=== PATIENT | female | born 1980 | race Caucasian/White ===

== ENCOUNTER 2020-11-23 07:59 | Emergency (ER) | payer OTHER ==
--- OUTSIDE RECORDS SUMMARY | 2020-11-23 08:02 | XMS REPORT | Continuity of Care Document ---
:1980 Author Organization [facility] t Address [address] [place] [address] Care Team Providers Name Role Phone Nina Rogers MD Attending Clinician Problems This patient has no known problems. Allergies, Adverse Reactions, Alerts This patient has no known allergies or adverse reactions. Medications This patient has no known medications. Procedures This patient has no known procedures. Encounters Start End Encounter Admission Attending Care Care Encounter Source Date/Time Date/Time Type Type Clinicians Facility Department ID 2020-07-14 2020-07-14 [facility] [id number] 10:15:25 23:59:00 Encounter [facility] [id number] Surgical [id number] Specialti [id number] es [address] 2020-07-14 2020-07-14 Office [facility] [id number] 10:12:40 10:32:26 Visit [facility] [id number] Surgical [id number] Specialti [id number] es [address] [place] Results This patient has no known results.
[2020-11-23] MEDS ORDERED: METHYLPREDNISOLONE 125 MG INJ ONE (09:38)
[2020-11-23] MEDS ORDERED: IPRATROPIUM BROM 0.5MG/2.5ML ONE ×2 (09:39)
[2020-11-23] MEDS ORDERED: ALBUTEROL 2.5 MG/3 ML NEB SOL ONE (09:39)
--- NOTE | 2020-11-23 09:51 | RAD REPORT ---
EXAM DESCRIPTION: Dany Single View11/23/2020 9:30 am CLINICAL HISTORY: Cough COMPARISON: none FINDINGS: The lungs appear clear of acute infiltrate. The heart is normal size IMPRESSION: No acute abnormalities displayed
[2020-11-23 10:06] LABS: Absolute Lymphocytes (CBC) 1.1 K/uL (0.7-4.9); Hematocrit 38.3 % (36.0-45.0); Lymphocytes % 17.3 % (15.3-44.8); MPV 10.5 fL (7.6-11.3)
[2020-11-23 10:22] LABS: ALT/SGPT 19 U/L (12-78); AST/SGOT 9 U/L (15-37); Albumin 3.5 g/dL (3.4-5.0); Alkaline Phosphatase 67 U/L (45-117); BUN Blood Urea Nitrogen 11 mg/dL (7-18); Bicarbonate 25 mmol/L (21-32); Bilirubin Direct 0.1 mg/dL (0-0.2); Bilirubin Total 0.3 mg/dL (0.2-1.0); Glucose Level 100 mg/dL (74-106); Lipase 121 U/L (73-393); Magnesium 1.9 mg/dL (1.8-2.4); Potassium 4.3 mmol/L (3.5-5.1); Sodium Level 144 mmol/L (136-145); Troponin (Emerg Dept Use Only) < 0.02 ng/mL (0.0-0.045)
--- NOTE | 2020-11-23 10:47 | ER ---
Nurse's Notes [facility] Name: Roxy Wolff Age: 40 yrs Sex: Female : 1980 Arrival Date: 11/23/2020 Time: 08:07 Bed 14 Private MD: Diagnosis: Bronchitis, not specified as acute or chronic Presentation: 11/23 08:09 Chief complaint: Patient states: sore throat, cough x 2 days. Coronavirus screen: sv Client denies travel out of the [place] in the last 14 days. Coronavirus screen: Client presents with at least one sign or symptom that may indicate coronavirus-19. Standard/surgical mask placed on the client. Provider contacted for isolation considerations. Ebola Screen: No symptoms or risks identified at this time. Risk Assessment: Do you want to hurt yourself or someone else? Patient reports no desire to harm self or others. Onset of symptoms was November 21, 2020. 08:09 Method Of Arrival: Ambulatory sv 08:09 Acuity: JOSR 3 sv 08:12 Initial Sepsis Screen: Does the patient meet any 2 criteria? No. Patient's initial sv sepsis screen is negative. Does the patient have a suspected source of infection? No. Patient's initial sepsis screen is negative. Historical: - Allergies: 08:12 Doxycycline; sv - PMHx: 08:12 Asthma; Arthritis; Gout; Tumors throughout my body; Anxiety; Migraines; sv - PSHx: 08:12 left neck reconstructive; kidney; sv - Immunization history:: Adult Immunizations. - Social history:: Smoking status: . Screenin:07 Abuse screen: Denies threats or abuse. Nutritional screening: No deficits noted. tw2 Tuberculosis screening: No symptoms or risk factors identified. Fall Risk None identified. Assessment: 08:47 Reassessment: provider at bedside at this time. tw2 08:54 General: Appears in no apparent distress. comfortable, Behavior is cooperative, vg1 anxious. Pain: Denies pain. Neuro: Level of Consciousness is awake, alert, obeys commands, Oriented to person, place, time, situation. Cardiovascular: Capillary refill < 3 seconds. Respiratory: Airway is patent Respiratory effort is even, unlabored, Breath sounds are clear bilaterally. GI: No signs and/or symptoms were reported involving the gastrointestinal system. : No signs and/or symptoms were reported regarding the genitourinary system. EENT: No signs and/or symptoms were reported regarding the EENT system. Derm: Skin is clammy. Musculoskeletal: Circulation, motion, and sensation intact. 11:18 Reassessment: Patient appears in no apparent distress at this time. Patient and/or sv family updated on plan of care and expected duration. Pain level reassessed. Patient is alert, oriented x 3, equal unlabored respirations, skin warm/dry/pink. Vital Signs: 08:12 BP 102 / 74; Pulse 86; Resp 20; Temp 98.5; Pulse Ox 98% ; Height 5 ft. 5 in. (165.10 sv cm); 08:55 BP 135 / 82; Pulse 80; Resp 20; Pulse Ox 100% on R/A; vg1 ED Course: 08:07 Patient arrived in ED. mr 08:09 Arm band placed on. sv 08:11 Triage completed. sv 08:43 Bed in low position. Call light in reach. Pulse ox on. NIBP on. tw2 08:45 Abimbola Le, RN is Primary Nurse. vg1 08:45 Timbo Parson MD is Attending Physician. ps1 09:30 XRAY CXR (1 view) In Process Unspecified. EDMS 09:36 Initial lab(s) drawn, by me, sent to lab. EKG done, by ED staff, reviewed by Abimbola Le RN. 09:36 Inserted saline lock: 20 gauge in right antecubital area, using aseptic technique. vg1 Blood collected. 11:18 No provider procedures requiring assistance completed. IV discontinued, intact, sv bleeding controlled, No redness/swelling at site. Pressure dressing applied. Administered Medications: 09:42 Drug: Albuterol 2.5 mg Route: Inhalation; vg1 :42 Drug: SOLU-Medrol 125 mg Route: IVP; Site: right antecubital; vg1 11:25 Follow up: Response: No adverse reaction vg1 09:42 Drug: AtroVENT Aerosol 0.5 mg Route: Inhalation; vg1 11:25 Drug: Albuterol 2.5 mg Route: Inhalation; vg1 11:25 Follow up: Response: No adverse reaction vg1 11:25 Follow up: Response: No adverse reaction vg1 11:25 Drug: AtroVENT Aerosol 0.5 mg Route: Inhalation; vg1 11:25 Follow up: Response: No adverse reaction vg1 Outcome: 10:46 Discharge ordered by . ps1 11:18 Discharged to home ambulatory. sv 11:18 Condition: stable 11:18 Condition: improved 11:18 Discharge instructions given to patient, Instructed on discharge instructions, follow up and referral plans. medication usage, Demonstrated understanding of instructions, follow-up care, medications, Prescriptions given X 3. 11:18 Patient left the ED. sv Signatures: Dispatcher [employer] EDDara Keys, RN RN sv Ruth Vickers mr Bailey Taylor, RN RN tw2 Timbo Parson MD MD ps1 Rey, Abimbola RN RN vg1 Corrections: (The following items were deleted from the chart) 08:15 08:12 Pulse 86bpm; Resp 20bpm; Pulse Ox 98%; Temp 98.5F; Height 5 ft. 5 in.; sv sv
--- NOTE | 2020-11-23 10:47 | EDPHYS ---
Physician Documentation [facility] Name: Roxy Wolff Age: 40 yrs Sex: Female : 1980 Arrival Date: 11/23/2020 Time: 08:07 Bed 14 Private MD: ED Physician Timbo Parson HPI: 11/23 10:47 This 40 yrs old Female presents to ER via Ambulatory with complaints of ps1 Asthma Exacerbation. 10:47 patient states that the symptoms started yesterday. Associated with wheezing. Has a ps1 history of asthma usually controlled with albuterol nebulizer. States that she has a thick cough. No production. No fever. Has anxiety about hospitals as they always find something wrong. No acute distress. Unlabored breathing. No leg swelling or DVT risk.. Historical: - Allergies: 08:12 Doxycycline; sv - PMHx: 08:12 Asthma; Arthritis; Gout; Tumors throughout my body; Anxiety; Migraines; sv - PSHx: 08:12 left neck reconstructive; kidney; sv - Immunization history:: Adult Immunizations. - Social history:: Smoking status: . ROS: 10:47 Constitutional: Negative for fever, chills, and weight loss. ps1 10:47 Eyes: Negative for injury, pain, redness, and discharge. 10:47 Cardiovascular: Negative for chest pain, orthopnea, palpitations, paroxysmal nocturnal dyspnea, acute changes. 10:47 Respiratory: Positive for cough, wheezing, expiratory, Negative for hemoptysis. 10:47 Abdomen/GI: Negative for abdominal pain, nausea, vomiting, and diarrhea, constipation. 10:47 Neuro: Negative for dizziness. 10:47 Psych: Positive for anxiety, Negative for homicidal ideation, suicidal ideation. Exam: 10:47 Constitutional: This is a well developed, well nourished patient who is awake, alert, ps1 and in no acute distress. 10:47 Head/Face: Normocephalic, atraumatic. 10:47 Eyes: Pupils: equal, round, and reactive to light and accomodation, Extraocular movements: intact throughout. 10:47 Chest/axilla: Inspection: normal. 10:47 Cardiovascular: Rate: normal, Rhythm: regular. 10:47 Abdomen/GI: Inspection: abdomen appears normal, Palpation: abdomen is soft and non-tender. 10:47 Skin: Appearance: normal except for affected area. 10:47 Psych: Behavior/mood is anxious, Affect is calm, Oriented to person, place, time. Vital Signs: 08:12 BP 102 / 74; Pulse 86; Resp 20; Temp 98.5; Pulse Ox 98% ; Height 5 ft. 5 in. (165.10 sv cm); 08:55 BP 135 / 82; Pulse 80; Resp 20; Pulse Ox 100% on R/A; vg1 MDM: 09:40 Patient medically screened. ps1 10:52 Differential diagnosis: acute asthma, reactive airway, URI. Data reviewed: vital signs, ps1 nurses notes, lab test result(s), radiologic studies. Counseling: I had a detailed discussion with the patient and/or guardian regarding: the historical points, exam findings, and any diagnostic results supporting the discharge/admit diagnosis, lab results, radiology results, the need for outpatient follow up, to return to the emergency department if symptoms worsen or persist or if there are any questions or concerns that arise at home. Medication response: albuterol nebulizer treatment(s) markedly relieved the patient's wheezing. 11/23 09:10 Order name: BMP ps1 11/23 09:10 Order name: CBC with Diff ps1 11/23 09:10 Order name: Hepatic Function ps1 11/23 09:10 Order name: Lipase ps1 11/23 09:10 Order name: Magnesium ps1 11/23 09:10 Order name: Troponin (emerg Dept Use Only) ps1 11/23 09:10 Order name: XRAY CXR (1 view); Complete Time: 09:54 ps1 11/23 09:10 Order name: Basic Metabolic Panel; Complete Time: 10:28 EDMS 11/23 09:10 Order name: Liver (Hepatic) Function; Complete Time: 10:28 EDMS 11/23 09:10 Order name: Lipase; Complete Time: 10:28 EDMS 11/23 09:10 Order name: CBC with Automated Diff; Complete Time: 10:28 EDMS 11/23 09:10 Order name: Magnesium; Complete Time: 10:28 EDMS 11/23 09:10 Order name: Troponin (Emerg Dept Use Only); Complete Time: 10:28 EDMS 11/23 09:10 Order name: EKG; Complete Time: 09:10 ps1 11/23 09:10 Order name: Cardiac monitoring; Complete Time: 09:43 ps1 11/23 09:10 Order name: EKG - Nurse/Tech; Complete Time: :43 ps1 11/23 09:10 Order name: IV Saline Lock; Complete Time: :43 ps1 11/23 09:10 Order name: Labs collected and sent; Complete Time: :43 ps1 11/23 09:10 Order name: O2 Per Protocol; Complete Time: :15 ps1 11/23 09:10 Order name: O2 Sat Monitoring; Complete Time: :15 ps1 Administered Medications: 09:42 Drug: Albuterol 2.5 mg Route: Inhalation; vg1 09:42 Drug: SOLU-Medrol 125 mg Route: IVP; Site: right antecubital; vg1 11:25 Follow up: Response: No adverse reaction vg1 09:42 Drug: AtroVENT Aerosol 0.5 mg Route: Inhalation; vg1 11:25 Drug: Albuterol 2.5 mg Route: Inhalation; vg1 11:25 Follow up: Response: No adverse reaction vg1 11:25 Follow up: Response: No adverse reaction vg1 11:25 Drug: AtroVENT Aerosol 0.5 mg Route: Inhalation; vg1 11:25 Follow up: Response: No adverse reaction vg1 Disposition: 11/23/20 10:46 Discharged to Home. Impression: Bronchitis, not specified as acute or chronic. - Condition is Stable. - Discharge Instructions: Acute Bronchitis, [id number]. - Prescriptions for Albuterol Sulfate 2.5 mg /3 mL (0.083 %) Inhalation Solution for Nebulization - inhale 1 unit by NEBULIZATION route every 8 hours As needed; 1 box. Zithromax Z- Prabhakar 250 mg Oral Tablet - take 1 tablet by ORAL route as directed for 5 days Day 1 - take two (2) tablets one time. Day 2, 3, 4 , 5 take one (1) tablet once daily.; 6 tablet. Albuterol Sulfate 90 mcg/actuation - inhale 1-2 puff by INHALATION route every 4-6 hours; 1 Inhaler. - Work release form, Medication Reconciliation Form, Thank You Letter, Antibiotic Education, Prescription Opioid Use form. - Follow up: Private Physician; When: As needed; Reason: Recheck today's complaints. Follow up: Emergency Department; When: As needed; Reason: Fever > 102 F, Trouble breathing, Worsening of condition. - Problem is new. - Symptoms have improved. Signatures: Dispatcher [employer] EDDara Keys RN RN sv Bailey Taylor RN RN tw2 Timbo Parson MD MD ps1 Abimbola Le RN RN vg1 Corrections: (The following items were deleted from the chart) 11:18 10:46 11/23/2020 10:46 Discharged to Home. Impression: Bronchitis, not specified as sv acute or chronic. Condition is Stable. Forms are Work release form, Medication Reconciliation Form, Thank You Letter, Antibiotic Education, Prescription Opioid Use. Follow up: Private Physician; When: As needed; Reason: Recheck today's complaints. Follow up: Emergency Department; When: As needed; Reason: Fever > 102 F, Trouble breathing, Worsening of condition. Problem is new. Symptoms have improved. ps1
[2020-11-23 11:26] VITALS: TEMP 98.5
[2020-11-23 11:27] VITALS: BP 135/82; O2SAT 100
== END 2020-11-23 11:18 | disposition home or self-care (01) ==
LOC: ER 07:59
DX: J40 Bronchitis, not specified as acute or chronic (principal); M19.90 Unspecified osteoarthritis, unspecified site; M10.9 Gout, unspecified; F41.9 Anxiety disorder, unspecified
CPT/HCPCS: 93005; 85025; 80048; 36415; 83735; 80076; 84484; 83690; 71045; 96374; 99284; J2930

== ENCOUNTER 2021-07-02 16:11 | Emergency (ER) | payer OTHER ==
--- NOTE | 2021-07-02 17:30 | RAD REPORT ---
EXAM DESCRIPTION: RAD - Ankle Right 3 View - 07/02/2021 5:20 pm CLINICAL HISTORY: fall, injury COMPARISON: No comparisons FINDINGS: Moderate soft tissue swelling is seen adjacent to the lateral malleolus. Small avulsion fr acture is seen involving the distal most aspect of the fibula. No dislocation evident.
[2021-07-02] MEDS ORDERED: MORPHINE 4 MG/ML SYR ONE (17:34)
[2021-07-02] MEDS ORDERED: ONDANSETRON 4 MG (ODT) TAB ONE (17:34)
--- NOTE | 2021-07-02 18:06 | ER ---
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 Coronavirus screen: Vaccine ll1 status: Patient reports being unvaccinated. Client denies travel out of the [place] in the last 14 days. At this time, the client does not indicate any symptoms associated with coronavirus-19. Ebola Screen: Patient denies travel to an Ebola-affected area in the 21 days before illness onset. Initial Sepsis Screen: Does the patient meet any 2 criteria? No. Patient's initial sepsis screen is negative. Risk Assessment: Do you want to hurt yourself or someone else? Patient reports no desire to harm self or others. Onset of symptoms was July 02, 2021. 16:39 Method Of Arrival: Wheelchair ll1 16:39 Acuity: JOSR 4 ll1 17:00 Initial Sepsis Screen: Does the patient have a suspected source of infection? No. iw Patient's initial sepsis screen is negative. Historical: - Allergies: 16:38 Doxycycline; ll1 - PMHx: 16:38 Anxiety; Arthritis; Asthma; Gout; Migraines; Tumors throughout my body; ll1 - PSHx: 16:38 L knee SX, L kidney SX; partial hyst., neck SX; 6 tumors removed.; ll1 - Immunization history:: Client reports having NOT received the Covid vaccine. - Social history:: Smoking status: Patient denies any tobacco usage or history of. Screenin:17 Abuse screen: Denies threats or abuse. Denies injuries from another. Nutritional iw screening: No deficits noted. Tuberculosis screening: No symptoms or risk factors identified. Fall Risk Assessment: 17:16 General: Appears uncomfortable, Behavior is cooperative. Pain: Complains of pain in iw right lateral ankle. Neuro: Level of Consciousness is awake, alert, obeys commands, Oriented to person, place, time, situation, Moves all extremities. Full function. Cardiovascular: Patient's skin is warm and dry. Musculoskeletal: Range of motion: limited in right ankle Swelling present in right ankle. Vital Signs: 16:39 BP 146 / 95; Pulse 100; Resp 18; Temp 97.0; Pulse Ox 98% ; Weight 78.02 kg; Height 5 ll1 ft. 5 in. (165.10 cm); Pain 10/10; 16:39 Body Mass Index 28.62 (78.02 kg, 165.10 cm) ll1 ED Course: 16:13 Patient arrived in ED. ds1 16:40 Triage completed. ll1 16:40 Imtiaz De PA is PHCP. m 16:40 Delonte Antoine MD is Attending Physician. m 16:40 Arm band placed on Patient placed in an exam room, on a stretcher. ll1 17:15 Gita Briceno, RN is Primary Nurse. iw 17:16 Patient has correct armband on for positive identification. iw 17:20 Ankle Right 3 View XRAY In Process Unspecified. EDMS 18:04 Tom Carlton DPM is Referral Physician. [facility] 18:05 ortho walking boot applied to pt right foot. 3 18:38 No provider procedures requiring assistance completed. Patient did not have IV access iw during this emergency room visit. Administered Medications: 17:15 Drug: morphine 4 mg Route: IM; Site: right deltoid; iw 18:41 Follow up: Response: No adverse reaction iw 17:15 Drug: Zofran (Ondansetron) 4 mg Route: PO; iw 18:41 Follow up: Response: No adverse reaction iw Outcome: 18:05 Discharge ordered by . [facility] 18:39 Discharged to home via wheelchair. iw 18:39 Condition: good 18:39 Discharge instructions given to patient, Instructed on discharge instructions, follow up and referral plans. Demonstrated understanding of instructions, follow-up care, medications, Prescriptions given X 1. 18:40 Patient left the ED. iw Signatures: Dispatcher [employer] EDMS Imtiaz De PA PA jmm Sanford, Demi ds1 Gita Briceno, RN RN Colleen Bergman 3 Fidel Thompson RN RN 1
--- NOTE | 2021-07-02 18:06 | EDPHYS ---
Physician Documentation [facility] Name: Roxy Wolff Age: 40 yrs Sex: Female : 1980 Arrival Date: 07/02/2021 Time: 16:13 Bed 9 Private MD: ED Physician Delonte Antoine HPI: 07/02 16:54 This 40 yrs old Female presents to ER via Wheelchair with complaints of Fall jmm Injury, Foot Injury. 16:54 Onset: The symptoms/episode began/occurred acutely, just prior to arrival. Associated jmm injuries: The patient sustained right ankle. The patient has not experienced similar symptoms in the past. patient states she slipped and rolled her right ankle, denies other injury. Historical: - Allergies: 16:38 Doxycycline; ll1 - PMHx: 16:38 Anxiety; Arthritis; Asthma; Gout; Migraines; Tumors throughout my body; ll1 - PSHx: 16:38 L knee SX, L kidney SX; partial hyst., neck SX; 6 tumors removed.; ll1 - Immunization history:: Client reports having NOT received the Covid vaccine. - Social history:: Smoking status: Patient denies any tobacco usage or history of. ROS: 16:54 Constitutional: Negative for fever, chills, and weight loss, Cardiovascular: Negative jmm for chest pain, palpitations, and edema, Respiratory: Negative for shortness of breath, cough, wheezing, and pleuritic chest pain. 16:54 MS/extremity: Positive for injury or acute deformity, pain. 16:54 All other systems are negative. Exam: 16:54 Constitutional: This is a well developed, well nourished patient who is awake, alert, jmm and in no acute distress. Head/Face: atraumatic. Eyes: EOMI, no conjunctival erythema appreciated ENT: Moist Mucus Membranes Neck: Trachea midline, Supple Chest/axilla: Normal chest wall appearance and motion. Cardiovascular: Regular rate and rhythm. No edema appreciated Respiratory: Normal respirations, no respiratory distress appreciated Abdomen/GI: Non distended, soft Back: Normal ROM Skin: General appearance color normal 16:54 Musculoskeletal/extremity: swelling noted to the right lateral malleollus, ttp, compartments are soft, NVI. 16:54 Skin: Appearance: Color: normal in color. 16:54 Neuro: Orientation: is normal, Mentation: is normal, Memory: is normal. 16:54 Psych: Behavior/mood is pleasant, cooperative. Vital Signs: 16:39 BP 146 / 95; Pulse 100; Resp 18; Temp 97.0; Pulse Ox 98% ; Weight 78.02 kg; Height 5 ll1 ft. 5 in. (165.10 cm); Pain 10/10; 16:39 Body Mass Index 28.62 (78.02 kg, 165.10 cm) ll1 MDM: 16:41 Patient medically screened. miguel 18:04 Data reviewed: vital signs, nurses notes. Counseling: I had a detailed discussion with [facility] the patient and/or guardian regarding: the historical points, exam findings, and any diagnostic results supporting the discharge/admit diagnosis, radiology results, the need for outpatient follow up, to return to the emergency department if symptoms worsen or persist or if there are any questions or concerns that arise at home. 07/02 16:54 Order name: Ankle Right 3 View XRAY; Complete Time: 17:35 [facility] 07/02 18:32 Order name: Walking boot; Complete Time: 18:32 iw Administered Medications: 17:15 Drug: morphine 4 mg Route: IM; Site: right deltoid; iw 18:41 Follow up: Response: No adverse reaction iw 17:15 Drug: Zofran (Ondansetron) 4 mg Route: PO; iw 18:41 Follow up: Response: No adverse reaction iw Disposition: 07/03 10:40 Co-signature as Attending Physician, Delonte Antoine MD I agree with the assessment and [facility] plan of care. Disposition Summary: 07/02/21 18:05 Discharge Ordered Location: Home [facility] Condition: Stable [facility] Diagnosis - Ankle Fracture [facility] Followup: [facility] - With: Tom Carlton DPM - When: 2 - 3 days - Reason: Recheck today's complaints, Continuance of care, Re-evaluation by your physician Discharge Instructions: - Discharge Summary Sheet [facility] - Ankle Fracture [facility] Forms: - Medication Reconciliation Form [facility] - Thank You Letter [facility] - Antibiotic Education [facility] - Prescription Opioid Use [facility] Prescriptions: - Ultracet 37.5-325 mg Oral Tablet - take 1 tablet by ORAL route every 6 hours - for up to 5 days; do not exceed 8 jmm tablets per day.; 20 tablet; Refills: 0, Product Selection Permitted Signatures: Dispatcher [employer] EDDelonte Ruiz MD MD cha Mickail, Joel, PA PA jmm Williams, Irene, RN RN iw Lewis, Lynsay, RN RN ll1 Corrections: (The following items were deleted from the chart) 07/02 18:32 17:36 Splint - Ankle: Orthoglass: Posterior ordered. marshall javed
[2021-07-02 19:18] VITALS: BP 146/95; TEMP 97; O2SAT 98
== END 2021-07-02 18:40 | disposition home or self-care (01) ==
LOC: ER 16:11
DX: S82.831A Other fracture of upper and lower end of right fibula, initial encounter for closed fracture (principal); W01.0XXA Fall on same level from slipping, tripping and stumbling without subsequent striking against object, initial encounter; Y93.9 Activity, unspecified; Y92.9 Unspecified place or not applicable; Z88.3 Allergy status to other anti-infective agents
CPT/HCPCS: 96372; 99284

== ENCOUNTER 2021-08-16 08:03 | Emergency (ER) | payer OTHER ==
--- OUTSIDE RECORDS SUMMARY | 2021-08-16 08:06 | XMS REPORT | Continuity of Care Document ---
:1980 Author Organization [facility] t Address [address] [place] [address] Care Team Providers Name Role Phone Sara PÉREZ, L Attending Clinician Nina RUIZ Attending Clinician Unavailable Mehran WHARTON Attending Clinician Unavailable Caitlyn HIP HOP DANCE INSTRUCTOR, G Attending Clinician Payers Payer Name Policy Type Policy Number Effective Date Expiration Date S ource Problems Condition Condition Condition Status Onset Resolution Last Treating Co mments Source Name Details Category Date Date Treatment Clinician Date No known No known Disease Unive rs active active ity of problems problems [facility] Allergies, Adverse Reactions, Alerts Allergy Allergy Status Severity Reaction(s) Onset Inactive Treating Comm ents Source Name Type Date Date Clinician Doxycycl Propensi Active Other - See 2019-09 Blisters Univers ine ty to comments 0-05 ity of adverse 00:00: [place] reaction 00 [facility]ly [facility] DOXYCYCL DRUG Active Hives 2019-09 Univers INE INGREDI 0-05 ity of 00:00: [place] 00 Medical [place] NO KNOWN Drug Active Univers ALLERGIE Class ity of S [facility] Social History Social Habit Start Date Stop Date Quantity Comments Source Sex Assigned At [facility] Medical Branch Exposure to Not sure [facility] SARS-CoV-2 (event) Medica l Branch Tobacco use and 2020-07-14 2020-07-14 Never used [facility] exposure 00:00:00 00:00:00 Medical Branch History of tobacco 2015-11-08 Smoker [facility] [place] use 00:00:00 Medical Branch Smoking Status Start Date Stop Date Source Former smoker 2020-07-14 00:00:00 2020-07-14 00:00:00 [facility] ty [facility] Unknown if ever smoked [facility] Medications Ordered Filled Start Stop Current Ordering Indication Dosage Frequency Signature Comments Components Source Medication Medication Date Date Medication? Clinician (SIG) Name Name traMADoL 50 2019-09 Yes 2745 50mg Take 1 Univ ers mg tablet 0-13 tablet by ity o f 00:00: mouth [place] 00 every 4 Medical (four) Branch hours as needed for Pain (scale 4-6). Indication s: chronic pain traMADoL 50 2019-09 Yes 2745 50mg Take 1 Univ ers mg tablet 0-13 tablet by ity o f 00:00: mouth [place] 00 every 4 Medical (four) Branch hours as needed for Pain (scale 4-6). Indication s: chronic pain traMADoL 50 2019-09 Yes 2745 50mg Take 1 Univ ers mg tablet 0-13 tablet by ity o f 00:00: mouth [place] 00 every 4 Medical (four) Branch hours as needed for Pain (scale 4-6). Indication s: chronic pain traMADoL 50 2019-09 Yes 2745 50mg Take 1 Univ ers mg tablet 0-13 tablet by ity o f 00:00: mouth [place] 00 every 4 Medical (four) Branch hours as needed for Pain (scale 4-6). Indication s: chronic pain ibuprofen 2019-09- No 800mg 800 mg, Uni vers (IBU) 0-06 10-06 Oral, ity of tablet 800 01:30: 00:50 ONCE, 1 Xander as mg 00 :00 dose, Mon Medical 06/13/20 at Branch 2030, SHANICE HYDROcodone 2019-09 2020- No 2{tbl} 2 tablet, Univers -acetaminop 0-06 10-06 Oral, ity of hen (NORCO 01:30: 00:50 ONCE, 1 Xander as 5) 5-325 mg 00 :00 dose, Mon Med ical tablet 2 06/13/[address] [facility] h tablet 2029, SHANICE acetaminoph 2019-09 Yes [id number] 1{tbl} Take 1 Un wendy en-codeine 0-05 tablet by ity of (TYLENOL-CO 00:00: mouth [place] DEINE #3) 00 every 4 Medical 300-30 mg (four) Branch tablet hours as needed for Pain (scale 4-6) or Pain (scale 7-10). Indication s: acute pain ibuprofen 2019-09 Yes [id number] 800mg Take 1 U nivers 800 mg 0-05 tablet by ity of tablet 00:00: mouth 3 [place] 00 (three) Medical times Branch daily with meals. acetaminoph 2019-09 Yes [id number] 1{tbl} Take 1 Un wendy en-codeine 0-05 tablet by ity of (TYLENOL-CO 00:00: mouth [place] DEINE #3) 00 every 4 Medical 300-30 mg (four) Branch tablet hours as needed for Pain (scale 4-6) or Pain (scale 7-10). Indication s: acute pain ibuprofen 2019-09 Yes [id number] 800mg Take 1 U nivers 800 mg 0-05 tablet by ity of tablet 00:00: mouth 3 00 (three) Medical times Branch daily with meals. acetaminoph 2019-09 Yes [id number] 1{tbl} Take 1 Un wendy en-codeine 0-05 tablet by ity of (TYLENOL-CO 00:00: mouth [place] DEINE #3) 00 every 4 Medical 300-30 mg (four) Branch tablet hours as needed for Pain (scale 4-6) or Pain (scale 7-10). Indication s: acute pain ibuprofen 2019-09 Yes [id number] 800mg Take 1 U nivers 800 mg 0-05 tablet by ity of tablet 00:00: mouth 3 00 (three) Medical times Branch daily with meals. acetaminoph 2019-09 Yes [id number] 1{tbl} Take 1 Un wendy en-codeine 0-05 tablet by ity of (TYLENOL-CO 00:00: mouth [place] DEINE #3) 00 every 4 Medical 300-30 mg (four) Branch tablet hours as needed for Pain (scale 4-6) or Pain (scale 7-10). Indication s: acute pain ibuprofen 2019-09 Yes [id number] 800mg Take 1 U nivers 800 mg 0-05 tablet by ity of tablet 00:00: mouth 3 [place] 00 (three) Medical times Branch daily with meals. acetaminoph 2019-09 Yes [id number] 1{tbl} Take 1 Un wendy en-codeine 0-05 tablet by ity of (TYLENOL-CO 00:00: mouth [place] DEINE #3) 00 every 4 Medical 300-30 mg (four) Branch tablet hours as needed for Pain (scale 4-6) or Pain (scale 7-10). Indication s: acute pain ibuprofen 2019-09 Yes [id number] 800mg Take 1 U nivers 800 mg 0-05 tablet by ity of tablet 00:00: mouth 3 [place] 00 (three) Medical times Branch daily with meals. acetaminoph 2019-09 Yes [id number] 1{tbl} Take 1 Un wendy en-codeine 0-05 tablet by ity of (TYLENOL-CO 00:00: mouth [place] DEINE #3) 00 every 4 Medical 300-30 mg (four) Branch tablet hours as needed for Pain (scale 4-6) or Pain (scale 7-10). Indication s: acute pain ibuprofen 2019-09 Yes [id number] 800mg Take 1 U nivers 800 mg 0-05 tablet by ity of tablet 00:00: mouth 3 00 (three) Medical times [place] daily with meals. acetaminoph 2019-09 Yes [id number] 1{tbl} Take 1 Un wendy en-codeine 0-05 tablet by ity of (TYLENOL-CO 00:00: mouth [place] DEINE #3) 00 every 4 Medical 300-30 mg (four) Branch tablet hours as needed for Pain (scale 4-6) or Pain (scale 7-10). Indication s: acute pain ibuprofen 2019-09 Yes [id number] 800mg Take 1 U nivers 800 mg 0-05 tablet by ity of tablet 00:00: mouth 3 00 (three) Medical times [place] daily with meals. Vital Signs Vital Name Observation Time Observation Value Comments Source Systolic blood 2020-07-14 16:16:00 114 mm[Hg] Univer sity of pressure [facility] Diastolic blood 2020-07-14 16:16:00 86 mm[Hg] [facility] Heart rate 2020-07-14 16:16:00 106 /min [facility] Body height 2020-07-14 16:16:00 165.1 cm [facility] Body weight 2020-07-14 16:16:00 83.915 kg [facility] BMI 2020-07-14 16:16:00 30.79 kg/m2 Universi ty of [facility] Branch Systolic blood 2020-07-14 16:16:00 114 mm[Hg] Univer sity of pressure [facility] Branch Diastolic blood 2020-07-14 16:16:00 86 mm[Hg] Unive rsity of pressure [facility] Heart rate 2020-07-14 16:16:00 106 /min Universi ty of [facility] Body height 2020-07-14 16:16:00 165.1 cm Universi ty of [facility] Branch Body weight 2020-07-14 16:16:00 83.915 kg Universi ty of [facility] Branch BMI 2020-07-14 16:16:00 30.79 kg/m2 Universi ty of [facility] Body height 2020-06-17 15:25:00 165.1 cm Universi ty of [facility] Branch Systolic blood 2020-06-17 15:25:00 118 mm[Hg] Univer sity of pressure [facility] Branch Diastolic blood 2020-06-17 15:25:00 76 mm[Hg] Unive rsity of pressure [facility] Heart rate 2020-06-17 15:25:00 64 /min Universi ty of [facility] Branch Systolic blood 2020-06-14 02:43:52 111 mm[Hg] Univer sity of pressure [facility] Branch Diastolic blood 2020-06-14 02:43:52 78 mm[Hg] Unive rsity of pressure [facility] Heart rate 2020-06-14 02:43:52 83 /min Universi ty of [facility] Respiratory rate 2020-06-14 02:43:52 20 /min Univ ersity of [facility] Oxygen saturation in 2020-06-14 02:43:52 99 /min [facility] Arterial blood by [facility] Pulse oximetry Branch Body temperature 2020-06-14 00:02:00 37.28 Mirela Univ ersity of [facility] Branch Body height 2020-06-14 00:02:00 165.1 cm Universi ty of [facility] Body weight 2020-06-14 00:02:00 83.915 kg Universi ty of [facility] BMI 2020-06-14 00:02:00 30.79 kg/m2 Universi ty of [facility] Branch Procedures Procedure Date / Time Performed Performing Clinician Sourc e XR ANKLE 3+ VW RIGHT 2020-07-14 16:15:27 [facility] XR ANKLE 3+ VW RIGHT 2020-06-14 01:19:41 Jason Menchaca [facility] [place] ity of [facility] XR FOOT <3 VW RIGHT 2020-06-14 01:19:41 Julia Sims [facility] NOTICE OF PRIVACY 2020-06-13 23:55:31 Doctor Unassigned, No Univ [facility] PRACTICES Name Medical Branch ED ORTHOPEDIC INJURY 2020-06-13 23:55:00 Julia Sims [facility] TREATMENT - LOWER [facility] Branch EXTREMITY CONSENT/REFUSAL FOR 2020-06-13 23:54:36 Doctor Unassigned, No [facility] DIAGNOSIS AND Name [facility] TREATMENT Encounters Start End Encounter Admission Attending Care Care Encounter Source Date/Time Date/Time Type Type Clinicians Facility Department ID 2020-07-14 2020-07-14 [facility] [id number] [facility] [place] 10:15:25 23:59:00 Encounter Claudy Batista [id number] ity of Surgical [id number] Xander as Specialti [id number] Ny dical es 8[address] [facility] 2020-07-14 2020-07-14 [facility] [id number] 10:15:25 23:59:00 Encounter Claudy Batista [id number] Surgical [id number] Specialti [id number] 8[address] [place] 2020-07-14 2020-07-14 Office [facility] [id number] 10:12:40 10:32:26 Visit [facility]y [facility] [id number] Surgical [id number] Specialti [id number] [address] [place] 2020-07-14 2020-07-14 Office [facility] [id number] Univers 10:12:40 10:32:26 Visit Claudy [facility] [id number] it y of Surgical [id number] Xander as Specialti [id number] Ny dical es [address] [facility] 2020-07-14 2020-07-14 Outpatient R SARA [facility] [id number] Univers 10:15:00 10:15:00 CLAUDY ity of [facility] 2020-07-14 2020-07-14 [id number] Univers 10:15:00 10:15:00 CLAUDY ity of [facility] 2020-06-24 2020-06-24 Outpatient R DIO, [facility] [id number] Univers 10:40:00 10:40:00 DARIAN [id number] ity of [facility] 2020-06-20 2020-06-20 Telephone Sara [facility] [id number] Univers 00:00:00 00:00:00 Claudy Wood [facility] [id number] it y of Surgical [id number] Xander as Specialti [id number] Ny dical es [address] [facility] 2020-06-17 2020-06-17 Office Sara [facility] [id number] Univers 10:02:27 10:58:05 Visit Claudy Wood [facility] [id number] it y of Surgical [id number] Xander as Specialti [id number] Ny dical es [address] [facility] 2020-06-17 2020-06-17 Outpatient R SARA [facility] [id number] Univers 10:15:00 [facility]15[facility] 2020-06-13 2020-06-13 Emergency [facility] [id number] Univers 19:03:00 22:31:00 [place] [id number] ity of [place] 4[place]7.2.686 [place] [id number] [facility] 084 [place] 2020-06-13 2020-06-13 Emergency X [facility] ERT [id number] Univers 18:55:00 18:55:00 ity of [facility] Results Test Description Test Time Test Comments Results Result Sour e Comments XR ANKLE 3+ VW Avulsion fracture Uni versity of RIGHT 5 stable position [facility] 17:40:01 Branch XR FOOT <3 VW No fracture or Univers ity of RIGHT 6 dislocation of the [facility] 02:19:40 right foot. RL: [id number] [facility] Patient name: EMELY PRATHERB: 1980 39 years EXAMINATION: XR FOOT <3 VW RIGHT Ordering Physician: JULIA SIMS CLINICAL HISTORY:inversion injury r/o fx COMPARISON:None TECHNIQUE:Frontal, oblique, and lateral views of the right foot performed. FINDINGS:Soft tissue swelling in the dorsal foot. No fracture or dislocationidentified . Lisfranc's joint is aligned. No osseous lesions or joint spacenarrowing. [facility], Radiant Results Inft User - 06/13/2020 9:20 PM CDTPatient name: EMELY PRATHERB: 1980 39 years EXAMINATION: XR FOOT <3 VW RIGHTOrdering Physician: JULIA SIMS CLINICAL HISTORY:inversion injury r/o fx COMPARISON:NoneTECHNI QUE:Frontal, oblique, and lateral views of the right foot performed.FINDINGS:So ft tissue swelling in the dorsal foot. No fracture or dislocationidentified . Lisfranc's joint is aligned. No osseous lesions or joint spacenarrowing.IMPRES SIONNo fracture or dislocation of the right foot.RL: 8722 ANKLE 3+ VW Impression: 1. Univer [facility]ity [facility] RIGHT 6 [facility] 02:16:45 the lateral Branch malleolus.2. Calcaneal spur. RL: 460 End of Report Ordering Physician: NEELIMA MENCHACA History: ?Pain after twisting injury Technique: Right ankle, 3 views Comparison: None Findings: ? Lateral soft tissue swelling is present. There is an avulsion fracture ofthe lateral malleolus, best appreciated in the oblique projection. No otherfractures are identified. The ankle mortise is preserved. A plantarcalcaneal spur is present. A small dystrophic subcutaneous calcification isseen within the heel. [facility], Radiant Results Inft User - 06/13/2020 9:17 PM CDTOrdering Physician: JASON Patelory: Pain after twisting injuryTechnique: Right ankle, 3 viewsComparison: NoneFindings: Lateral soft tissue swelling is present. There is an avulsion fracture ofthe lateral malleolus, best appreciated in the oblique projection. No otherfractures are identified. The ankle mortise is preserved. A plantarcalcaneal spur is present. A small dystrophic subcutaneous calcification isseen within the heel.IMPRESSIONImpres jayshree:1. Avulsion fracture of the lateral malleolus.2. Calcaneal spur.RL: 460End of Report
[2021-08-16 09:34] LABS: SARS-COV-2 RT PCR NEGATIVE (NEGATIVE)
[2021-08-16] MEDS ORDERED: ALBUTEROL 2.5 MG/3 ML NEB SOL ONE (09:57)
[2021-08-16] MEDS ORDERED: IPRATROPIUM BROM 0.5MG/2.5ML ONE (09:57)
[2021-08-16] MEDS ORDERED: predniSONE 20 MG TAB ONE (09:57)
--- NOTE | 2021-08-16 10:20 | EDPHYS ---
Physician Documentation [facility] Name: Roxy Wolff Age: 40 yrs Sex: Female : 1980 Arrival Date: 08/16/2021 Time: 08:08 Bed Treatment Private MD: ED Physician Kam Pereyra HPI: 08/16 08:16 This 40 yrs old Female presents to ER via Unassigned with complaints of Cough, kb Congestion. 08:16 The patient or guardian reports cough, that is intermittent, described as moderate, kb difficulty breathing, flu symptoms, low-grade fever, myalgias. Onset: The symptoms/episode began/occurred 3 day(s) ago. Severity of symptoms: At their worst the symptoms were moderate, in the emergency department the symptoms are unchanged. Modifying factors: The symptoms are alleviated by nothing, the symptoms are aggravated by nothing. Associated signs and symptoms: Pertinent positives: fever, rhinorrhea, Pertinent negatives: chest pain, diarrhea, ear ache, nausea, sore throat, vomiting. The patient has not experienced similar symptoms in the past. The patient has not recently seen a physician. Pt reports cough, congestion, fever and malaise for 3 days. States had similar symptoms but has recovered. . 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 - Social history:: Smoking status: Patient reports the use of cigarette tobacco products. ROS: 08:16 Abdomen/GI: Negative for abdominal pain, nausea, vomiting, diarrhea, and constipation. kb 08:16 Constitutional: Positive for fever, malaise. 08:16 ENT: Positive for rhinorrhea, sinus congestion. 08:16 Respiratory: Positive for cough, shortness of breath, Negative for dyspnea on exertion, hemoptysis, orthopnea, pleurisy, sputum production, wheezing. 08:16 All other systems are negative. Exam: 08:16 Constitutional: This is a well developed, well nourished patient who is awake, alert, kb and in no acute distress. Head/Face: Normocephalic, atraumatic. ENT: Moist Mucous membranes Cardiovascular: Regular rate and rhythm with a normal S1 and S2. No gallops, murmurs, or rubs. No pulse deficits. Respiratory: Respirations even and unlabored. No increased work of breathing. Talking in full sentences Skin: Warm, dry with normal turgor. Normal color. MS/ Extremity: Pulses equal, no cyanosis. Neurovascular intact. Full, normal range of motion. Neuro: Awake and alert, GCS 15, oriented to person, place, time, and situation. Moves all extremities. Normal gait. Psych: Awake, alert, with orientation to person, place and time. Behavior, mood, and affect are within normal limits. Vital Signs: 08:50 BP 141 / 86; Pulse 85; Resp 22; Temp 98.6; Pulse Ox 100% ; Weight 78.02 kg; Height 5 jh5 ft. 5 in. (165.10 cm); 08:50 Body Mass Index 28.62 (78.02 kg, 165.10 cm) jh5 MDM: 08:09 Patient medically screened. kb 08:20 Data reviewed: vital signs, nurses notes. Data interpreted: Pulse oximetry: on room air kb is 100 %. Interpretation: normal. 10:18 Counseling: I had a detailed discussion with the patient and/or guardian regarding: the kb historical points, exam findings, and any diagnostic results supporting the discharge/admit diagnosis, lab results, radiology results, the need for outpatient follow up, a family practitioner, to return to the emergency department if symptoms worsen or persist or if there are any questions or concerns that arise at home. ED course: Antibiotics prescribed due to current smoking status and history of asthma. . 1208 08:16 Order name: COVID-19/FLU A+B (Document "Date of Onset" if Symptomatic); Complete Time: kb 09:36 08/16 08:16 Order name: Chest Pa And Lat (2 Views) XRAY; Complete Time: 10:49 kb Administered Medications: 10:02 Drug: DuoNeb (albuterol 2.5 mg, ipratropium 0.5 mg) (3:1) (2.5 mg - 0.5 mg) 3 ml Route: iw Nebulizer; 10:15 Follow up: Response: No adverse reaction iw 10:02 Drug: predniSONE 40 mg Route: PO; iw 10:15 Follow up: Response: No adverse reaction iw Disposition: 22:39 Co-signature as Attending Physician, Kam Pereyra MD I agree with the assessment and sp3 plan of care. Disposition Summary: 08/16/21 10:19 Discharge Ordered Location: Home kb Condition: Stable kb Diagnosis - Acute bronchitis, unspecified kb Followup: kb - With: Emergency Department - When: As needed - Reason: Worsening of condition Followup: kb - With: Private Physician - When: 2 - 3 days - Reason: Recheck today's complaints, Continuance of care, Re-evaluation by your physician Discharge Instructions: - Discharge Summary Sheet kb - Acute Bronchitis, Adult, [id number] kb Forms: - Medication Reconciliation Form kb - Thank You Letter kb - Antibiotic Education kb - Prescription Opioid Use kb Prescriptions: - Prednisone 20 mg Oral Tablet - take 1 tablet by ORAL route once daily for 5 days; 5 tablet; Refills: 0, kb Product Selection Permitted - Tessalon Perles 100 mg Oral Capsule - take 1 capsule by ORAL route every 8 hours As needed; 15 capsule; Refills: 0, kb Product Selection Permitted - albuterol sulfate 90 mcg/actuation Inhalation HFA aerosol inhaler - inhale 2 puff by INHALATION route every 4-6 hours As needed; 1 Inhaler; kb Refills: 0, Product Selection Permitted - Albuterol Sulfate 2.5 mg /3 mL (0.083 %) Inhalation Solution for Nebulization - inhale 1 unit by NEBULIZATION route every 8 hours As needed; 1 box; Refills: 0, kb Product Selection Permitted - Zithromax 500 mg Oral Tablet - take 1 tablet by ORAL route once daily for 5 days; 5 tablet; Refills: 0, kb Product Selection Permitted Signatures: Dispatcher [employer] Angy Doshi, SCHOOL EXAMINER-C SCHOOL EXAMINER-Gita Ruffin, RN RN iw Kam Pereyra MD MD sp3 Moon Flor RN RN jh5
--- NOTE | 2021-08-16 10:20 | ER ---
Nurse's Notes [facility] Name: Roxy Wolff Age: 40 yrs Sex: Female : 1980 Arrival Date: 08/16/2021 Time: 08:08 Bed Treatment Private MD: Diagnosis: Acute bronchitis, unspecified Presentation: 08/16 08:50 Chief complaint: Patient states: cough, congestion, fever, SOB, malaise x3 days. [facility] Coronavirus screen: Vaccine status: Patient reports being unvaccinated. Client denies travel out of the [place] in the last 14 days. Ebola Screen: Patient negative for fever greater than or equal to 101.5 degrees Fahrenheit, and additional compatible Ebola Virus Disease symptoms Patient denies exposure to infectious person. Patient denies travel to an Ebola-affected area in the 21 days before illness onset. No symptoms or risks identified at this time. Initial Sepsis Screen: Does the patient meet any 2 criteria? No. Patient's initial sepsis screen is negative. Does the patient have a suspected source of infection? Yes: Productive cough/pneumonia. Risk Assessment: Do you want to hurt yourself or someone else? Patient reports no desire to harm self or others. Onset of symptoms was August 10, 2021. 08:50 Method Of Arrival: Ambulatory [facility] 08:50 Acuity: JOSR 4 [facility] Triage Assessment: 08:52 General: Appears uncomfortable, Behavior is calm, cooperative, appropriate for age. 5 Pain: Denies pain. Respiratory: Breath sounds are clear. 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 - Social history:: Smoking status: Patient reports the use of cigarette tobacco products. Screenin:54 Abuse screen: Denies threats or abuse. Denies injuries from another. Nutritional [facility] screening: No deficits noted. Tuberculosis screening: No symptoms or risk factors identified. Fall Risk None identified. Assessment: 08:55 Pain: Denies pain. Cardiovascular: Capillary refill < 3 seconds Patient's skin is warm jh5 and dry. Respiratory: Airway is patent Trachea midline Respiratory effort is even, unlabored, Respiratory pattern is regular, Vital Signs: 08:50 BP 141 / 86; Pulse 85; Resp 22; Temp 98.6; Pulse Ox 100% ; Weight 78.02 kg; Height 5 5 ft. 5 in. (165.10 cm); 08:50 Body Mass Index 28.62 (78.02 kg, 165.10 cm) [facility] ED Course: 08:08 Patient arrived in ED. mr 08:08 Angy Ceballos FNP-C is PHCP. kb 08:08 Kam Pereyra MD is Attending Physician. kb 08:52 Triage completed. [facility] 08:54 Patient has correct armband on for positive identification. Bed in low position. Call [facility] light in reach. Side rails up X 1. 08:55 Arm band placed on. 5 08:55 No provider procedures requiring assistance completed. [facility] 09:55 Gita Briceno, RN is Primary Nurse. iw 10:00 Chest Pa And Lat (2 Views) XRAY In Process Unspecified. EDMS 10:54 Patient did not have IV access during this emergency room visit. iw Administered Medications: 10:02 Drug: DuoNeb (albuterol 2.5 mg, ipratropium 0.5 mg) (3:1) (2.5 mg - 0.5 mg) 3 ml Route: iw Nebulizer; 10:15 Follow up: Response: No adverse reaction iw 10:02 Drug: predniSONE 40 mg Route: PO; iw 10:15 Follow up: Response: No adverse reaction iw Outcome: 10:19 Discharge ordered by MD. kb 10:52 Discharged to home ambulatory. iw 10:52 Condition: good 10:52 Discharge instructions given to patient, Instructed on discharge instructions, follow up and referral plans. medication usage, Demonstrated understanding of instructions, follow-up care, medications, Prescriptions given X 4. 10:53 Patient left the ED. iw Signatures: Dispatcher [employer] EDNJ Angy Ceballos FNP-C FNP-Jose Ruth Vickers mr Gita Briceno, RN HEATHER Moon Flor RN RN [facility]
--- NOTE | 2021-08-16 10:48 | RAD REPORT ---
EXAM DESCRIPTION: Dany Mendoza And Deandre (2 Views)08/16/2021 9:59 am CLINICAL HISTORY: Shortness of breath COMPARISON: November 2020 FINDINGS: The lungs appear clear of acute infiltrate. The heart is normal size IMPRESSION: No acute abnormalities displayed
[2021-08-16 11:03] VITALS: BP 141/86; TEMP 98.6; O2SAT 100
== END 2021-08-16 10:53 | disposition home or self-care (01) ==
LOC: ER 08:03
DX: J20.9 Acute bronchitis, unspecified (principal); Z20.822 Contact with and (suspected) exposure to COVID-19; Z72.0 Tobacco use; Z88.1 Allergy status to other antibiotic agents
CPT/HCPCS: 0240U; 71046; 94640; 99284; J7512

== ENCOUNTER 2022-08-14 08:14 | Emergency (ER) | payer OTHER ==
--- OUTSIDE RECORDS SUMMARY | 2022-08-14 08:17 | XMS REPORT | Continuity of Care Document ---
:[address] [facility] t Address [address] [place] [address] Care Team Providers Name Role Phone Claudy Ruiz MD Attending Clinician CLAUDY RUIZ Attending Clinician Unavailable Caitlyn CHACON, Julia Fink Attending Clinician Payers Payer Name Policy Type Policy Number Effective Date Expiration Date S ource Problems Condition Condition Condition Status Onset Resolution Last Treating Co mments Source Name Details Category Date Date Treatment Clinician Date No known No known Disease Unive rs active active ity of problems problems [facility] Allergies, Adverse Reactions, Alerts Allergy Allergy Status Severity Reaction(s) Onset Inactive Treating Comm ents Source Name Type Date Date Clinician Doxycycl Propensi Active Other - See 2019-09 Blisters Univers ine ty to comments 0-05 ity of adverse 00:00: [place] reaction 00 [facility] DOXYCYCL DRUG Active Hives 2019-09 Univers INE INGREDI 0-05 ity of 00:00: [place] 00 Medical [place] NO KNOWN Drug Active Univers ALLERGIE Class ity of S [facility] Social History Social Habit Start Date Stop Date Quantity Comments Source Sex Assigned At [facility] Medical Branch Exposure to Not sure [facility] SARS-CoV-2 (event) Medica l Branch Tobacco use and 2020-07-14 2020-07-14 Never used [facility] exposure 00:00:00 00:00:00 Medical Branch History of tobacco 2015-11-08 Smoker Univer sity of [place] use 00:00:00 Medical Branch Smoking Status Start Date Stop Date Source Former smoker 2020-07-14 00:00:00 2020-07-14 00:00:00 [facility] ty [facility] Unknown if ever smoked [facility] Medications Ordered Filled Start Stop Current Ordering [...] (scale 4-6). Indication s: chronic pain ibuprofen 2019-09 2020- No 800mg 800 mg, Uni vers (IBU) 0-06 -06 Oral, ity of tablet 800 01:30: 00:50 ONCE, 1 Xadner as mg 00 :00 dose, Mon Medical 06/13/20 at Branch 2030, SHANICE HYDROcodone 2019-09 2020- No 2{tbl} 2 tablet, Univers -acetaminop 0-06 10-06 Oral, ity of hen (NORCO 01:30: 00:50 ONCE, 1 Xander as 5) 5-325 mg 00 :00 dose, Mon Med ical tablet 2 06/13/20 at [facility] tablet 2029, SHANICE acetaminoph 2019-09 Yes [id number] 1{tbl} Take 1 Un wendy en-codeine 0-05 tablet by ity of (TYLENOL-CO 00:00: mouth [place] DEINE #3) 00 every 4 Medical 300-30 mg (four) Branch tablet hours as needed for Pain (scale 4-6) or Pain (scale 7-10). Indication s: acute pain ibuprofen 2019-09 Yes [id number] 800mg Take 1 U nivers 800 mg [...] Indication s: acute pain ibuprofen 2019-09 Yes [id number] 800mg Take 1 U nivers 800 mg [...] Indication s: acute pain ibuprofen 2019-09 Yes [id number] 800mg Take 1 U nivers 800 mg [...] Indication s: acute pain ibuprofen 2019-09 Yes [id number] 800mg Take 1 U nivers 800 mg [...] Indication s: acute pain ibuprofen 2019-09 Yes [id number] 800mg Take 1 U nivers 800 mg [...] Indication s: acute pain ibuprofen 2019-09 Yes [id number] 800mg Take 1 U nivers 800 mg 0-05 tablet by ity of tablet 00:00: mouth 3 00 (three) Medical times [place] daily with meals. acetaminoph 2019-09 Yes [id number] 1{tbl} Take 1 Un wendy en-codeine 0-05 tablet by ity of (TYLENOL-CO 00:00: mouth [place] DEINE #3) 00 every 4 Medical 300-30 mg (four) Branch tablet hours as needed for Pain (scale 4-6) or Pain (scale 7-10). Indication s: acute pain ibuprofen 2019-09 Yes [id number] 800mg Take 1 U nivers 800 mg 0-05 tablet by ity of tablet 00:00: mouth 3 00 (three) Medical times [place] daily with meals. Vital Signs Vital Name Observation Time Observation Value Comments Source Systolic blood 2020-07-14 16:16:00 114 mm[Hg] Univer sity of pressure [facility] Diastolic blood 2020-07-14 16:16:00 86 mm[Hg] [facility] Heart rate 2020-07-14 16:16:00 106 /min [facility] Body height 2020-07-14 16:16:00 165.1 cm [facility] Body weight 2020-07-14 16:16:00 83.915 kg [facility] BMI 2020-07-14 16:16:00 30.79 kg/m2 Universi ty of [facility] Branch Systolic blood 2020-07-14 16:16:00 114 mm[Hg] Univer sity of pressure [facility] Branch Diastolic blood 2020-07-14 16:16:00 86 mm[Hg] Unive rsity of pressure [facility] Heart rate 2020-07-14 16:16:00 106 /min Universi ty of [facility] Body height 2020-07-14 16:16:00 165.1 cm Universi ty of [facility] Body weight 2020-07-14 16:16:00 83.915 kg Universi ty of [facility] Branch BMI 2020-07-14 16:16:00 30.79 kg/m2 Universi ty of [facility] Branch Systolic blood 2020-06-17 15:25:00 118 mm[Hg] Univer sity of pressure [facility] Branch Diastolic blood 2020-06-17 15:25:00 76 mm[Hg] Unive rsity of pressure [facility] Heart rate 2020-06-17 15:25:00 64 /min Universi ty of [facility] Body height 2020-06-17 15:25:00 165.1 cm Universi ty of [facility] Oxygen saturation in 2020-06-14 02:43:52 99 /min [facility] Arterial blood by [facility] Pulse oximetry Branch Systolic blood 2020-06-14 02:43:52 111 mm[Hg] Univer sity of pressure [facility] Diastolic blood 2020-06-14 02:43:52 78 mm[Hg] Unive rsity of [facility] Heart rate 2020-06-14 02:43:52 83 /min Universi ty of [facility] Branch Respiratory rate 2020-06-14 02:43:52 20 /min Univ ersity of [facility] Body temperature 2020-06-14 00:02:00 37.28 Mirela Univ ersity of [facility] Body height 2020-06-14 00:02:00 165.1 cm Universi ty of [facility] Body weight 2020-06-14 00:02:00 83.915 kg Universi ty of [facility] BMI 2020-06-14 00:02:00 30.79 kg/m2 Universi ty of [facility] Procedures Procedure Date / Time Performed Performing Clinician Sourc e XR ANKLE 3+ VW RIGHT 2020-07-14 16:15:27 [facility] XR ANKLE 3+ VW RIGHT 2020-06-14 01:19:41 Jason Menchaca [facility] FOOT <3 VW RIGHT 2020-06-14 01:19:41 Julia Sims [facility] NOTICE OF PRIVACY 2020-06-13 23:55:31 Doctor Unassigned, No Univ [facility] PRACTICES Name Medical Branch ED ORTHOPEDIC INJURY 2020-06-13 23:55:00 Julia Sims [facility] TREATMENT - LOWER [facility] Branch EXTREMITY CONSENT/REFUSAL FOR 2020-06-13 23:54:36 Doctor Unassigned, No [facility] AND Name [facility] TREATMENT Encounters Start End Encounter Admission Attending Care Care Encounter Source Date/Time Date/Time Type Type Clinicians Facility Department ID 2020-07-14 2020-07-14 [facility] [id number] 10:15:25 23:59:00 Encounter Claudy Batista [id number] Surgical [id number] Specialti [id number] es 809 [place] 2020-07-14 2020-07-14 [facility] [id number] [facility] 10:15:25 23:59:00 Encounter Claudy Batista [id number] ity of Surgical [id number] Xander as Specialti [id number] Mi dical es 809 [facility] 2020-07-14 2020-07-14 Office [facility] [id number] 10:12:40 10:32:26 Visit Claudy Batista [id number] Surgical [id number] Specialti [id number] es 198 [place] 2020-07-14 2020-07-14 Office [facility] [id number] [facility] 10:12:40 10:32:26 Visit Claudy Batista [id number] it y of Surgical [id number] Xander as Specialti [id number] Mi dical es 198 [facility] 2020-07-14 2020-07-14 [facility] [id number] Univers 10:15:00 10:15:00 CLAUDY landrum [facility] 2020-06-20 2020-06-20 Telephone Sara [facility] [id number] Univers 00:00:00 00:00:00 Claudy Wood [facility] [id number] it y of Surgical [id number] Xander as Specialti [id number] Mi dical es 198 [facility] 2020-06-17 2020-06-17 [facility] [id number] Univers 10:02:27 10:58:05 Visit Claudy Wood [facility] [id number] it y of Surgical [id number] Xander as Specialti [id number] Mi dical es 198 [facility] 2020-06-17 2020-06-17 [facility] [id number] Univers 10:15:00 10:15:00 [facility] 2020-06-13 2020-06-13 Emergency [facility] [id number] Univers 19:03:00 22:31:00 Julia Coyle [id number] ity [facility] [id number] [facility] [id number] [facility] 084 [place] 2020-06-13 2020-06-13 Emergency X [facility] ERT [id number] Univers 18:55:00 18:55:00 ity of [facility] Results Test Description Test Time Test Comments Results Result [facility] e Comments XR ANKLE 3+ VW Avulsion fracture Uni versity of RIGHT 5 stable position [place] Med ical 17:40:01 Branch XR FOOT <3 VW No fracture or Univers ity of RIGHT 6 dislocation of the [facility] 02:19:40 right foot. RL: [id number] Bran ch Patient name: EMELY SALEH MAXIMILIAN: 1980 39 years EXAMINATION: XR FOOT <3 VW RIGHT Ordering Physician: JULIA SIMS CLINICAL HISTORY:inversion injury r/o fx COMPARISON:None TECHNIQUE:Frontal, oblique, and lateral views of the right foot performed. FINDINGS:Soft tissue swelling in the dorsal foot. No fracture or dislocationidentified . Lisfranc's joint is aligned. No osseous lesions or joint spacenarrowing. [facility], Radiant Results Inft User - 06/13/2020 9:20 PM CDTPatient name: EMELY YAO: 1980 39 years EXAMINATION: XR FOOT <3 [...] sity of RIGHT 6 [place] 02:16:45 the lateral Branch malleolus.2. Calcaneal [...] dystrophic subcutaneous calcification isseen within the heel. [facility], Radiant Results Inft User - 06/13/2020 9:17 PM CDTOrdering Physician: JASON NEGRONistory: Pain after twisting injuryTechnique: Right ankle, 3 [...]
[2022-08-14] MEDS ORDERED: DIAZEPAM 5 MG TABLET ONE (08:25)
[2022-08-14] MEDS ORDERED: METHYLPREDNISOLONE 40 MG INJ ONE (08:26)
[2022-08-14] MEDS ORDERED: PROMETHAZINE INJ 25 MG/ML AMP ONE (08:41)
--- NOTE | 2022-08-14 09:22 | EDPHYS ---
Physician Documentation [facility] Name: Roxy Wolff Age: 41 yrs Sex: Female : 1980 Arrival Date: 08/14/2022 Time: 08:15 Bed 13 Private MD: ED Physician Kyle Briggs HPI: 08/14 08:27 This 41 yrs old Female presents to ER via Wheelchair with complaints of Back Pain. snw 08:27 The patient presents with pain that is acute. The symptoms are located in the left snw subscapular area, right subscapular area and thoracic area. Onset: The symptoms/episode began/occurred suddenly, just prior to arrival. The pain does not radiate. Associated signs and symptoms: Pertinent positives: "I'm just stuck". The problem was sustained from a chronic condition, degenerative joint disease, the patient has known disc disease, the patient has had previous back surgery. Severity of symptoms: At their worst the symptoms were incapacitating. The patient has experienced similar episodes in the past. The patient has not recently seen a physician. 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 - Social history:: Smoking status: Patient denies any tobacco usage or history of. ROS: 08:25 Constitutional: Negative for fever, chills, and weight loss, Eyes: Negative for injury, snw pain, redness, and discharge, ENT: Negative for injury, pain, and discharge, Neck: Negative for injury, pain, and swelling, Cardiovascular: Negative for chest pain, palpitations, and edema, Respiratory: Negative for shortness of breath, cough, wheezing, and pleuritic chest pain, Abdomen/GI: Negative for abdominal pain, nausea, vomiting, diarrhea, and constipation, : Negative for injury, bleeding, discharge, and swelling, MS/Extremity: Negative for injury and deformity, Skin: Negative for injury, rash, and discoloration, Neuro: Negative for headache, weakness, numbness, tingling, and seizure. 08:25 Back: Positive for decreased range of motion, pain at rest, pain with movement, of the left subscapular area, right subscapular area and thoracic area. Exam: 08:23 Head/Face: Normocephalic, atraumatic. Eyes: Pupils equal round and reactive to light, snw extra-ocular motions intact. Lids and lashes normal. Conjunctiva and sclera are non-icteric and not injected. Cornea within normal limits. Periorbital areas with no swelling, redness, or edema. ENT: Nares patent. No nasal discharge, no septal abnormalities noted. Tympanic membranes are normal and external auditory canals are clear. Oropharynx with no redness, swelling, or masses, exudates, or evidence of obstruction, uvula midline. Mucous membranes moist. Neck: Trachea midline, no thyromegaly or masses palpated, and no cervical lymphadenopathy. Supple, full range of motion without nuchal rigidity, or vertebral point tenderness. No Meningismus. Chest/axilla: Normal chest wall appearance and motion. Nontender with no deformity. No lesions are appreciated. Cardiovascular: Tachycardic rate and rhythm with a normal S1 and S2. No gallops, murmurs, or rubs. Normal PMI, no JVD. No pulse deficits. Respiratory: Lungs have equal breath sounds bilaterally, clear to auscultation and percussion. No rales, rhonchi or wheezes noted. No increased work of breathing, no retractions or nasal flaring. Abdomen/GI: Soft, non-tender, with normal bowel sounds. No distension or tympany. No guarding or rebound. No evidence of tenderness throughout. 08:23 Constitutional: The patient appears alert, awake, anxious, diaphoretic, restless, uncomfortable. 08:23 Back: pain, that is severe, of the left subscapular area, right subscapular area and thoracic area, ROM is painful, with all movement, CVA tenderness, is absent, pt animated. 08:23 Neuro: Orientation: is normal, Mentation: is normal, Memory: is normal. Vital Signs: 08:20 BP 117 / 101; Pulse 122; Resp 18; Temp 98.3(O); Pulse Ox 99% on R/A; Weight 84.82 kg; db Height 5 ft. 5 in. (165.10 cm); Pain 10/10; 08:47 BP 117 / 101; Pulse 97; Resp 22 S; Temp 98.3(O); Pulse Ox 100% on R/A; Pain 10/10; kc6 09:01 BP 117 / 77; Pulse 78; Resp 18 S; Pulse Ox 96% on R/A; Pain 6/10; kc6 08:20 Body Mass Index 31.12 (84.82 kg, 165.10 cm) db MDM: 08:34 Patient medically screened. snw 09:02 Data reviewed: vital signs, nurses notes. Data interpreted: Pulse oximetry: on room air snw is 96 %. Interpretation: acceptable. ED course: Pain significantly reduced. 09:24 Response to treatment: the patient's symptoms have markedly improved after treatment. snw Special discussion: Based on the history and exam findings, there is no indication for further emergent testing or inpatient evaluation. I discussed with the patient/guardian the need to see the back specialist for further evaluation of the symptoms. I discussed with the patient/guardian the need to see the primary care provider for further evaluation of the symptoms. Administered Medications: 08:32 Drug: SOLU-Medrol (methylPREDNISolone sodium succinate) 80 mg Route: IM; Site: left kc6 deltoid; 09:10 Follow up: Response: No adverse reaction; Marked relief of symptoms kc6 08:33 Drug: Valium (diazepam) 10 mg Route: PO; kc6 09:10 Follow up: Response: No adverse reaction; Marked relief of symptoms; Pain is decreased; kc6 RASS: Alert and Calm (0) 08:44 Drug: Phenergan (promethazine) 25 mg Route: IM; Site: right deltoid; kc6 09:10 Follow up: Response: No adverse reaction; Nausea is decreased kc6 Disposition: 10:55 Co-signature as Attending Physician, Kyle Briggs MD I agree with the assessment and kdr plan of care. Disposition Summary: 08/14/22 09:22 Discharge Ordered Location: Home snw Condition: Stable snw Diagnosis - Upper back pain snw Followup: snw - With: Emergency Department - When: As needed - Reason: Worsening of condition Followup: snw - With: Private Physician - When: 2 - 3 days - Reason: Recheck today's complaints, Continuance of care, Re-evaluation by your physician Discharge Instructions: - Discharge Summary Sheet snw - Muscle Cramps and Spasms snw - Musculoskeletal Pain snw - Acute Pain, Adult snw Forms: - Medication Reconciliation Form snw - Thank You Letter snw - Antibiotic Education snw - Prescription Opioid Use snw Prescriptions: - Tramadol 50 mg Oral Tablet - take 1 tablet by ORAL route every 8 hours as needed; 12 tablet; Refills: 0, snw Product Selection Permitted - Prednisone 20 mg Oral Tablet - take 2 tablets by ORAL route once daily for 5 days; 10 tablet; Refills: 0, snw Product Selection Permitted - orphenadrine citrate 100 mg Oral Tablet Sustained Release - take 1 tablet by ORAL route 2 times per day As needed; 20 tablet; Refills: 0, snw Product Selection Permitted - Pepcid 20 mg Oral Tablet - take 1 tablet by ORAL route once daily; 20 tablet; Refills: 0, Product snw Selection Permitted Signatures: Kyle Briggs MD MD kdr Waters, Shelly, FNP-C FNP-Aliyah Mistry RN RN ss Ann Jarvis RN RN kc6 Aminata Alegre RN RN db Corrections: (The following items were deleted from the chart) 08:28 08:23 Head/Face: Normocephalic, atraumatic. Eyes: Pupils equal round and reactive to snw light, extra-ocular motions intact. Lids and lashes normal. Conjunctiva and sclera are non-icteric and not injected. Cornea within normal limits. Periorbital areas with no swelling, redness, or edema. ENT: Nares patent. No nasal discharge, no septal abnormalities noted. Tympanic membranes are normal and external auditory canals are clear. Oropharynx with no redness, swelling, or masses, exudates, or evidence of obstruction, uvula midline. Mucous membranes moist. Neck: Trachea midline, no thyromegaly or masses palpated, and no cervical lymphadenopathy. Supple, full range of motion without nuchal rigidity, or vertebral point tenderness. No Meningismus. Chest/axilla: Normal chest wall appearance and motion. Nontender with no deformity. No lesions are appreciated. Cardiovascular: Regular rate and rhythm with a normal S1 and S2. No gallops, murmurs, or rubs. Normal PMI, no JVD. No pulse deficits. Respiratory: Lungs have equal breath sounds bilaterally, clear to auscultation and percussion. No rales, rhonchi or wheezes noted. No increased work of breathing, no retractions or nasal flaring. Abdomen/GI: Soft, non-tender, with normal bowel sounds. No distension or tympany. No guarding or rebound. No evidence of tenderness throughout. snw
--- NOTE | 2022-08-14 09:22 | ER ---
Nurse's Notes [facility] Name: Roxy Wolff Age: 41 yrs Sex: Female : 1980 Arrival Date: 08/14/2022 Time: 08:15 Bed 13 Private MD: Diagnosis: Upper back pain Presentation: 08/14 08:20 Chief complaint: Patient states: states woke up with severe upper back pain. Denies db Recent injury. states has hx of neck surgery and fusion. Coronavirus screen: Vaccine status: Patient reports being unvaccinated. Client denies travel out of the [place] in the last 14 days. At this time, the client does not indicate any symptoms associated with coronavirus-19. Ebola Screen: Patient negative for fever greater than or equal to 101.5 degrees Fahrenheit, and additional compatible Ebola Virus Disease symptoms Patient denies exposure to infectious person. Patient denies travel to an Ebola-affected area in the 21 days before illness onset. No symptoms or risks identified at this time. Initial Sepsis Screen: Does the patient meet any 2 criteria? HR > 90 bpm. Yes Does the patient have a suspected source of infection? No. Patient's initial sepsis screen is negative. Risk Assessment: Do you want to hurt yourself or someone else? Patient reports no desire to harm self or others. Onset of symptoms was August 14, 2022. 08:20 Method Of Arrival: Wheelchair db 08:20 Acuity: JOSR 3 db Triage Assessment: 08:20 General: Appears distressed, uncomfortable, Behavior is anxious, restless. Pain: db Complains of pain in back of neck and posterior chest. Neuro: No deficits noted. Level of Consciousness is awake, alert, obeys commands, Oriented to person, place, time, situation, Appropriate for age. Respiratory: No deficits noted. Airway is patent Respiratory effort is even, Respiratory pattern is regular, symmetrical. Musculoskeletal: Capillary refill < 3 seconds. 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 - Social history:: Smoking status: Patient denies any tobacco usage or history of. Screenin:35 Abuse screen: Denies threats or abuse. Denies injuries from another. Nutritional kc6 screening: No deficits noted. Tuberculosis screening: No symptoms or risk factors identified. Fall Risk None identified. Assessment: 08:33 General: Appears distressed, uncomfortable, Behavior is cooperative, appropriate for kc6 age, crying. Pain: Complains of pain in thoracic area Pain does not radiate. Pain currently is 10 out of 10 on a pain scale. Quality of pain is described as sharp, shooting, stabbing, feeling as if she is "locked up and cannot relax." Pain began suddenly, Is continuous, Alleviated by nothing. Aggravated by increased activity, repositioning, Noted to be crying, grimacing, resistant to movement, Also complains of nausea, diaphoresis. Neuro: Chan Agitation-Sedation Scale (RASS): +1 Restless Level of Consciousness is awake, alert, obeys commands, Oriented to person, place, time, situation, Appropriate for age. Cardiovascular: Heart tones S1 S2 present Capillary refill < 3 seconds. Respiratory: Airway is patent Trachea midline Respiratory effort is even, labored, Respiratory pattern is symmetrical, hyperventilation tachypnea Breath sounds are clear bilaterally. GI: Pt is actively vomiting clear fluid. : No signs and/or symptoms were reported regarding the genitourinary system. EENT: No signs and/or symptoms were reported regarding the EENT system. Derm: No signs and/or symptoms reported regarding the dermatologic system. Skin is intact, Skin is diaphoretic, Skin is normal, Skin temperature is warm. Musculoskeletal: No signs and/or symptoms reported regarding the musculoskeletal system. Circulation, motion, and sensation intact. Capillary refill < 3 seconds, Range of motion: intact in all extremities. 09:02 Reassessment: Patient appears in no apparent distress at this time. Patient and/or kc6 family updated on plan of care and expected duration. Pain level reassessed. Patient is alert, oriented x 3, equal unlabored respirations, skin warm/dry/pink. client stated her pain has decreased from a 10/10 to a 6/10. no longer vomiting. resting comfortably in bed, spouse at bedside. bed locked and in lowest position, side rails up x1. call light within reach. verbalized understanding to call if assistance needed. Vital Signs: 08:20 BP 117 / 101; Pulse 122; Resp 18; Temp 98.3(O); Pulse Ox 99% on R/A; Weight 84.82 kg; db Height 5 ft. 5 in. (165.10 cm); Pain 10/10; 08:47 BP 117 / 101; Pulse 97; Resp 22 S; Temp 98.3(O); Pulse Ox 100% on R/A; Pain 10/10; kc6 09:01 BP 117 / 77; Pulse 78; Resp 18 S; Pulse Ox 96% on R/A; Pain 6/10; kc6 08:20 Body Mass Index 31.12 (84.82 kg, 165.10 cm) db ED Course: 08:15 Patient arrived in ED. am2 08:16 Jeanne Hall FNP-C is [facility]. snw 08:16 Kyle Briggs MD is Attending Physician. snw 08:20 Arm band placed on left wrist. db 08:22 Ann Jarvis, HEATHER is Primary Nurse. kc6 08:26 Triage completed. db 09:35 No provider procedures requiring assistance completed. Patient did not have IV access kc6 during this emergency room visit. 09:39 Patient has correct armband on for positive identification. Placed in gown. Bed in low kc6 position. Call light in reach. Side rails up X 1. Adult w/ patient. Administered Medications: 08:32 Drug: SOLU-Medrol (methylPREDNISolone sodium succinate) 80 mg Route: IM; Site: left kc6 deltoid; 09:10 Follow up: Response: No adverse reaction; Marked relief of symptoms kc6 08:33 Drug: Valium (diazepam) 10 mg Route: PO; kc6 09:10 Follow up: Response: No adverse reaction; Marked relief of symptoms; Pain is decreased; kc6 RASS: Alert and Calm (0) 08:44 Drug: Phenergan (promethazine) 25 mg Route: IM; Site: right deltoid; kc6 09:10 Follow up: Response: No adverse reaction; Nausea is decreased kc6 Medication: 09:39 VIS not applicable for this client. kc6 Outcome: 09:22 Discharge ordered by . snw 09:39 Discharged to home via wheelchair, with significant other. kc6 09:39 Condition: improved 09:39 Discharge instructions given to patient, significant other, Instructed on discharge instructions, medication usage, Demonstrated understanding of instructions, medications, Prescriptions given X 4. 09:39 Patient left the ED. kc6 Signatures: Jeanne Hall, CONFECTIONERY COOKER-C CONFECTIONERY COOKER-Csnw Aliyah Singh, HEATHER RN ss Shannan Vasquez am2 Ann Jarvis RN RN kc6 Aminata Alegre RN RN db Corrections: (The following items were deleted from the chart) 08:50 08:33 Respiratory: Airway is patent Trachea midline Respiratory effort is even, kc6 unlabored, Respiratory pattern is regular, symmetrical, Breath sounds are clear bilaterally. kc6 09:05 08:33 Pain: Complains of pain in thoracic area Pain does not radiate. Pain currently is kc6 10 out of 10 on a pain scale. Quality of pain is described as sharp, stabbing, Pain began suddenly, Is continuous, Alleviated by nothing. Aggravated by increased activity, repositioning, Noted to be crying, grimacing, resistant to movement, Also complains of nausea, diaphoresis, kc6 09:09 09:02 Reassessment: Patient appears in no apparent distress at this time. No changes kc6 from previously documented assessment. Patient and/or family updated on plan of care and expected duration. Pain level reassessed. Patient is alert, oriented x 3, equal unlabored respirations, skin warm/dry/pink. client stated her pain has decreased from a 10/10 to a 6/10. no longer vomiting. resting comfortably in bed, spouse at bedside. bed locked and in lowest position, side rails up x1. call light within reach. verbalized understanding to call if assistance needed. kc6
[2022-08-14 12:12] VITALS: TEMP 98.3
[2022-08-14 12:21] VITALS: BP 117/77; O2SAT 96
== END 2022-08-14 09:39 | disposition home or self-care (01) ==
LOC: ER 08:14
DX: M54.9 Dorsalgia, unspecified (principal)
CPT/HCPCS: 96372; 99283; J2550; J2920

== ENCOUNTER 2022-10-18 18:16 | Emergency (ER) | payer OTHER ==
--- OUTSIDE RECORDS SUMMARY | 2022-10-18 18:20 | XMS REPORT | Continuity of Care Document ---
:1980 Author Organization [facility] t Address [address] [place] [address] Care Team Providers Name Role Phone Claudy Ruiz MD Attending Clinician CLAUDY RUIZ Attending Clinician Unavailable Caitlyn INTERSTATE BUS DRIVER, Julia Fink Attending Clinician Payers Payer Name Policy Type Policy Number Effective Date Expiration Date S ource Problems Condition Condition Condition Status Onset Resolution Last Treating Co mments Source Name Details Category Date Date Treatment Clinician Date No known No known Disease Unive rs active active ity of problems problems [facility] Allergies, Adverse Reactions, Alerts Allergy Allergy Status Severity Reaction(s) Onset Inactive Treating Comm ents Source Name Type Date Date Clinician Doxycycl Propensi Active Other - See 2019-09 Blisters Univers ine ty to comments 0-05 ity of adverse 00:00: [place] reaction 00 [facility] DOXYCYCL DRUG Active Hives 2019-09 Univers INE INGREDI 0-05 ity of 00:00: [place] 00 [facility] NO KNOWN Drug Active Univers ALLERGIE Class ity of [facility] Social History Social Habit Start Date Stop Date Quantity Comments Source Sex Assigned At [facility] Medical Branch Exposure to Not sure [facility] SARS-CoV-2 (event) Medica l Branch Tobacco use and 2020-07-14 2020-07-14 Never used [facility] exposure 00:00:00 00:00:00 Medical Branch History of tobacco 2015-11-08 Smoker Univer sity of [place] use 00:00:00 Medical Branch Smoking Status Start Date Stop Date Source Former smoker 2020-07-14 00:00:00 2020-07-14 00:00:00 [facility] Unknown if ever smoked [facility] Medications Ordered Filled Start Stop [...] tablet by ity o f 00:00: mouth [place] 00 every 4 Medical (four) Branch hours [...] dose, Mon Medical 06/13/20 at Branch 2030, SHNAICE HYDROcodone 2019-09 2020- No 2{tbl} 2 tablet, Univers -acetaminop 0-06 10-06 Oral, ity of hen (NORCO 01:30: 00:50 ONCE, 1 Xander as 5) 5-325 mg 00 :00 dose, Mon Med ical tablet 2 06/13/20 at [facility] tablet 2029, SHANICE acetaminoph 2019-09 Yes [id number] 1{tbl} Take 1 Un wendy en-codeine 0-05 tablet by ity of (TYLENOL-CO 00:00: mouth [place] DEINE #3) 00 every 4 Medical 300-30 mg (four) Branch tablet hours as needed for Pain (scale 4-6) or Pain (scale 7-10). Indication s: acute pain ibuprofen 2019-09 Yes [id number] 800mg Take 1 U nivers 800 mg [...] Indication s: acute pain ibuprofen 2019-09 Yes [id number] 800mg Take 1 U nivers 800 mg [...] Indication s: acute pain ibuprofen 2019-09 Yes [id number] 800mg Take 1 U nivers 800 mg [...] Indication s: acute pain ibuprofen 2019-09 Yes [id number] 800mg Take 1 U nivers 800 mg [...] Indication s: acute pain ibuprofen 2019-09 Yes [id number] 800mg Take 1 U nivers 800 mg [...] Indication s: acute pain ibuprofen 2019-09 Yes [id number] 800mg Take 1 U nivers 800 mg 0-05 tablet by ity of tablet 00:00: mouth 3 00 (three) Medical times [place] daily with meals. acetaminoph 2019-09 Yes [id number] 1{tbl} Take 1 Un wendy en-codeine 0-05 tablet by ity of (TYLENOL-CO 00:00: mouth [place] DEINE #3) 00 every 4 Medical 300-30 mg (four) Branch tablet hours as needed for Pain (scale 4-6) or Pain (scale 7-10). Indication s: acute pain ibuprofen 2019-09 Yes [id number] 800mg Take 1 U nivers 800 mg 0-05 tablet by ity of tablet 00:00: mouth 3 00 (three) Medical times [place] daily with meals. Vital Signs Vital Name Observation Time Observation Value Comments Source Systolic blood 2020-07-14 16:16:00 114 mm[Hg] Univer sity of pressure [facility] Diastolic blood 2020-07-14 16:16:00 86 mm[Hg] [facility] Heart rate 2020-07-14 16:16:00 106 /min [facility] Body height 2020-07-14 16:16:00 165.1 cm [facility] Body weight 2020-07-14 16:16:00 83.915 kg [facility] BMI 2020-07-14 16:16:00 30.79 kg/m2 Universi ty of [facility] Branch Systolic blood 2020-07-14 16:16:00 114 mm[Hg] Univer sity of pressure [facility] Diastolic blood 2020-07-14 16:16:00 86 mm[Hg] Unive rsity of pressure [facility] Heart rate 2020-07-14 16:16:00 106 /min Universi ty of [facility] Body height 2020-07-14 16:16:00 165.1 cm Universi ty of [facility] Body weight 2020-07-14 16:16:00 83.915 kg Universi ty of [facility] BMI 2020-07-14 16:16:00 30.79 kg/m2 Universi ty of [facility] Systolic blood 2020-06-17 15:25:00 118 mm[Hg] Univer sity of pressure [facility] Diastolic blood 2020-06-17 15:25:00 76 mm[Hg] Unive rsity of pressure [facility] Heart rate 2020-06-17 15:25:00 64 /min Universi ty of [facility] Body height 2020-06-17 15:25:00 165.1 cm Universi ty of [facility] Systolic blood 2020-06-14 02:43:52 111 mm[Hg] Univer sity of pressure [facility] Diastolic blood 2020-06-14 02:43:52 78 mm[Hg] Unive rsity of pressure [facility] Heart rate 2020-06-14 02:43:52 83 /min Universi ty of [facility] Respiratory rate 2020-06-14 02:43:52 20 /min Univ ersity of [facility] Oxygen saturation in 2020-06-14 02:43:52 99 /min [facility] Arterial blood by [facility] Pulse oximetry Branch Body temperature 2020-06-14 00:02:00 37.28 Mirela Univ ersity of [facility] Body height 2020-06-14 00:02:00 165.1 cm Universi ty of [facility] Body weight 2020-06-14 00:02:00 83.915 kg Universi ty of [facility] BMI 2020-06-14 00:02:00 30.79 kg/m2 Universi ty of [facility] Procedures Procedure Date / Time Performed Performing Clinician Sourc e XR ANKLE 3+ VW RIGHT 2020-07-14 16:15:27 [facility] XR ANKLE 3+ VW RIGHT 2020-06-14 01:19:41 Jason Menchaca [facility] ity of [facility] XR FOOT <3 VW RIGHT 2020-06-14 01:19:41 Julia Sims [facility] ity [facility] NOTICE OF PRIVACY 2020-06-13 23:55:31 Doctor Unassigned, No Univ [facility] PRACTICES Name [facility] ED ORTHOPEDIC INJURY 2020-06-13 23:55:00 Julia Sims [facility] TREATMENT - LOWER [facility] EXTREMITY CONSENT/REFUSAL FOR 2020-06-13 23:54:36 Doctor Unassigned, No [facility] DIAGNOSIS AND [facility] TREATMENT Encounters Start End Encounter Admission Attending Care Care Encounter Source Date/Time Date/Time Type Type Clinicians Facility Department ID 2020-07-14 2020-07-14 [facility] [id number] 10:15:25 23:59:00 Encounter Claudy [facility] [id number] Surgical [id number] Specialti [id number] [place] 2020-07-14 2020-07-14 [facility] [id number] [facility] 10:15:25 23:59:00 Encounter Claudy Batista [id number] ity of Surgical [id number] Xander as Specialti [id number] Co dical es 809 [facility] 2020-07-14 2020-07-14 Office [facility] [id number] 10:12:40 10:32:26 Visit Claudy [facility] [id number] Surgical [id number] Specialti [id number] 198 [place] 2020-07-14 2020-07-14 Office [facility] [id number] Univers 10:12:40 10:32:26 Visit Claudy [facility] [id number] it y of Surgical [id number] Xander as Specialti [id number] Co dical es 198 [facility] 2020-07-14 2020-07-14 Outpatient [facility] [id number] Univers 10:15:00 10:15:00 CLAUDY landrum [facility] 2020-06-20 2020-06-20 Telephone Sara [facility] [id number] Univers 00:00:00 00:00:00 Claudy Wood [facility] [id number] it y of Surgical [id number] Xander as Specialti [id number] Co dical es 198 [facility] 2020-06-17 2020-06-17 Office Sara [facility] [id number] Univers 10:02:27 10:58:05 Visit Claudy Wood [facility] [id number] it y of Surgical [id number] Xander as Specialti [id number] Co dical es 198 [facility] 2020-06-17 2020-06-17 Outpatient R [facility] [id number] Univers 10:15:00 10:15:[facility] 2020-06-13 2020-06-13 Emergency [facility] [id number] Univers 19:03:00 22:31:00 [place] [id number] ity [facility] [id number] [facility] [id number] [facility] 084 [place] 2020-06-13 2020-06-13 Emergency X [facility] ERT [id number] Univers 18:55:00 18:55:00 ity of [facility] Results Test Description Test Time Test Comments Results Result Sour e Comments XR ANKLE 3+ VW Avulsion fracture Uni versity of RIGHT 5 stable position [place] Med ica 17:40:01 Branch XR FOOT <3 VW No fracture or Univers ity of RIGHT 6 dislocation of the [facility] 02:19:40 right foot. RL: [id number] Bran ch [...]
[2022-10-18] MEDS ORDERED: KETOROLAC 30 MG/ML INJ ONE (19:18)
[2022-10-18] MEDS ORDERED: FAMOTIDINE 20 MG/2 ML VIAL IV ONE (19:19)
[2022-10-18] MEDS ORDERED: ONDANSETRON 4 MG/2 ML VIAL ONE (19:19)
[2022-10-18] MEDS ORDERED: NA CHLORIDE 0.9% 1,000 ML ONE (19:19)
[2022-10-18 19:26] LABS: Urine Blood 1+ (Negative); Urine Glucose Negative (Negative); Urine Protein 1+ (Negative); Urine Specific Gravity >=1.030 (1.005-1.030); Urine pH 5.5 (5.0-7.0)
[2022-10-18 19:39] LABS: Absolute Lymphocytes (CBC) 0.9 K/uL (0.7-4.9); MCV 94.2 fL (80-100); MPV 10.1 fL (7.6-11.3); RBC Red Blood Cell Count 4.14 M/uL (3.86-4.86)
[2022-10-18 19:57] LABS: Albumin 3.5 g/dL (3.4-5.0); Bilirubin Total 0.4 mg/dL (0.2-1.0); Potassium 3.7 mmol/L (3.5-5.1); Protein, Total 7.2 g/dL (6.4-8.2)
[2022-10-18 19:57] LABS: Urine Bacteria <20 /HPF (<20); Urine Mucus Slight /HPF (None Seen); Urine WBC Clump Rare /HPF (None Seen)
[2022-10-18 20:25] LABS: SARS-COV-2 RT PCR POSITIVE (NEGATIVE)
[2022-10-18 20:44] LABS: Urine Specific Gravity/Preg >1.030 (1.005-1.030)
--- NOTE | 2022-10-18 20:52 | EDPHYS ---
Physician Documentation [facility] Name: Roxy Wolff Age: 42 yrs Sex: Female : 1980 Arrival Date: 10/18/2022 Time: 18:22 Bed 9 Private MD: ED Physician Reggie Luna HPI: 10/18 19:10 This 42 yrs old Female presents to ER via Ambulatory with complaints of covid+, cp Headache, Vomiting. 19:10 The patient reports fever, with an emergency department temperature of 100.4 degrees cp Fahrenheit. Onset: The symptoms/episode began/occurred yesterday. 19:10 Associated signs and symptoms: Pertinent positives: chills, decreased appetite, cp diarrhea, nausea, sore throat, vomiting, Pertinent negatives: cough, shortness of breath. 19:10 Severity of symptoms: in the emergency department the symptoms are unchanged despite cp home interventions. Patient reports taking Ibuprofen and Tylenol for fever but Tylenol made nausea/vomiting worse. 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 - Social history:: Smoking status: Patient denies any tobacco usage or history of. ROS: 19:15 Constitutional: Positive for body aches, chills, fever. cp 19:15 Eyes: Negative for injury, pain, redness, and discharge. cp 19:15 ENT: Positive for sore throat, Negative for drainage from ear(s), ear pain, difficulty swallowing, difficulty handling secretions. 19:15 Respiratory: Negative for cough, shortness of breath, wheezing. 19:15 Abdomen/GI: Positive for nausea, vomiting, diarrhea, Negative for constipation. 19:15 : Negative for urinary symptoms. 19:15 Neuro: Positive for headache, Negative for altered mental status. 19:15 All other systems are negative. Exam: 19:20 Constitutional: The patient appears in no acute distress, alert, awake, non-toxic, well cp developed, well nourished, uncomfortable. 19:20 Head/Face: Normocephalic, atraumatic. cp 19:20 Eyes: Periorbital structures: appear normal, Conjunctiva: normal, no exudate, no injection, Sclera: no appreciated abnormality, Lids and lashes: appear normal, bilaterally. 19:20 ENT: External ear(s): are unremarkable, Ear canal(s): are normal, clear, TM's: dullness, bilaterally, Nose: is normal, Mouth: Lips: moist, Oral mucosa: moist, Posterior pharynx: Airway: no evidence of obstruction, patent, Tonsils: with erythema, no enlargement, no exudate, swelling, is not appreciated, erythema, that is mild, exudate, is not appreciated. 19:20 Neck: ROM/movement: is normal, is supple, no meningismus, no nuchal rigidity. 19:20 Chest/axilla: Inspection: normal. 19:20 Cardiovascular: Rate: normal, Rhythm: regular. 19:20 Respiratory: the patient does not display signs of respiratory distress, Respirations: normal, no use of accessory muscles, no retractions, labored breathing, is not present, Breath sounds: are clear throughout, no decreased breath sounds, no stridor, no wheezing. 19:20 Abdomen/GI: Inspection: abdomen appears normal, Bowel sounds: active, all quadrants, Palpation: soft, in all quadrants, mild abdominal tenderness, in all quadrants. 19:20 Back: CVA tenderness, is absent. 19:20 Neuro: Orientation: to person, place \T\ time. Mentation: is normal, Cerebellar function: is grossly normal, Motor: moves all fours, strength is normal, Sensation: is normal. Vital Signs: 18:34 BP 101 / 73; Pulse 98; Resp 22; Temp 100.4(O); Pulse Ox 99% on R/A; Weight 84.82 kg; mb9 Height 5 ft. 5 in. (165.10 cm); Pain 10/10; 19:00 BP 106 / 71; Pulse 92; Resp 18; Pulse Ox 100% on R/A; kr3 21:01 BP 109 / 68; Pulse 94; Resp 20; Temp 100.4; Pulse Ox 98% on R/A; kr3 18:34 Body Mass Index 31.12 (84.82 kg, 165.10 cm) mb9 MDM: 18:41 Patient medically screened. cp 20:50 Data reviewed: vital signs, nurses notes, lab test result(s). cp 20:50 Consideration of Admission/Observation Escalation of care including cp admission/observation considered. I considered the following discharge prescriptions or medication management in the emergency department Medications were administered in the Emergency Department. See MAR. Test considered but Not performed: X-ray: chest. Counseling: I had a detailed discussion with the patient and/or guardian regarding: the historical points, exam findings, and any diagnostic results supporting the discharge/admit diagnosis, lab results, to return to the emergency department if symptoms worsen or persist or if there are any questions or concerns that arise at home. Response to treatment: the patient's symptoms have markedly improved after treatment, patient is well hydrated. and as a result, I will discharge patient. 10/18 19:02 Order name: Strep; Complete Time: 20:46 10/18 20:46 Interpretation: GP A STREP SC GROUP A STREP SCREEN-- POSITIVE; Reviewed. 10/18 19:02 Order name: COVID-19/FLU A+B; Complete Time: 20:40 cp 10/18 20:40 Interpretation: Reviewed. / 19:02 Order name: CBC with Diff; Complete Time: 20:20 cp 10/18 20:41 Interpretation: Normal except: MN% 14.9. 10/18 19:02 Order name: CMP; Complete Time: 20:20 10/18 20:20 Interpretation: Normal except: CL 109; GFR 74; GLOB 3.7; A/G 0.9. / 19:02 Order name: Lipase; Complete Time: 20:20 cp 10/18 19:02 Order name: Urine Microscopic Only; Complete Time: 20:20 / 20:20 Interpretation: Normal except: URBC 5-10; SQEPI 20-50. / 19:02 Order name: EKG; Complete Time: 19:03 cp 10/18 19:26 Order name: Urine Dipstick-Ancillary; Complete Time: 20:20 EDMS 10/18 20:20 Interpretation: Normal except: UKET Trace; UBLD 1+; UPROT 1+. cp 10/18 19:34 Order name: Urine --Ancillary (enter results); Complete Time: 20:46 wm 10/18 19:02 Order name: IV Saline Lock; Complete Time: 19:26 cp 10/18 19:02 Order name: Labs collected and sent; Complete Time: 19:26 cp 10/18 19:02 Order name: Urine Dipstick-Ancillary (obtain specimen); Complete Time: 19:26 cp 10/18 19:02 Order name: Urine Test (obtain specimen); Complete Time: 19:26 cp 10/18 19:02 Order name: EKG - Nurse/Tech; Complete Time: 20:12 cp 10/18 20:50 Order name: Vital Signs: please recheck temp; Complete Time: 21:01 cp Administered Medications: 19:35 Drug: NS 0.9% 1000 ml Route: IV; Rate: 1 bolus; Site: right antecubital; kr3 21:20 Follow up: Response: No adverse reaction; IV Status: Completed infusion; IV Intake: kr3 1000ml 19:40 Drug: Pepcid (famotidine) 20 mg Route: IVP; Site: right antecubital; kr3 21:21 Follow up: Response: No adverse reaction kr3 19:44 Drug: TORadol - (ketorolac) 15 mg Route: IVP; Site: right antecubital; kr3 21:20 Follow up: Response: No adverse reaction kr3 19:45 Drug: Zofran (Ondansetron) 4 mg Route: IVP; Site: right antecubital; kr3 21:20 Follow up: Response: No adverse reaction kr3 21:01 Drug: Augmentin (Amoxicillin-Clavulanate) 875 mg Route: PO; kr3 21:20 Follow up: Response: No adverse reaction kr3 Disposition: 10/19 07:46 Co-signature as Attending Physician, Reggie Luna MD I reviewed the patient's care rt provided by the Advanced Practice Provider and agree with the diagnosis and treatment plan. Disposition Summary: 10/18/22 20:51 Discharge Ordered Location: Home cp Problem: new cp Symptoms: have improved cp Condition: Stable cp Diagnosis - SARS-associated coronavirus as the cause of diseases classified elsewhere cp - Streptococcal pharyngitis cp - Nausea with vomiting, unspecified cp - Headache cp Followup: cp - With: Private Physician - When: 2 - 3 days - Reason: Worsening of condition Discharge Instructions: - Discharge Summary Sheet cp - Nausea and Vomiting, Adult cp - Strep Throat, Adult cp - Aspirin and Your Heart cp - COVID-19 cp - Things to Know about the COVID-19 Pandemic - [facility] cp - 10 Things You Can Do to Manage Your COVID-19 Symptoms at Home - [facility] cp - COVID-19: Quarantine vs. Isolation - [facility] cp - Prevent the Spread of COVID-19 if You Are Sick - [facility] cp Forms: - Medication Reconciliation Form cp - Thank You Letter cp - Antibiotic Education cp - Prescription Opioid Use cp Prescriptions: - Paxlovid (EUA) 150 mg x 2- 100 mg Oral tablet - take 3 tablet by ORAL route 2 times per day for 5 days per package directions; cp 30 tablet; Refills: 0, Product Selection Permitted - albuterol sulfate 90 mcg/actuation Inhalation HFA aerosol inhaler - inhale 1 puff by INHALATION route every 4-6 hours; 1 Inhaler; Refills: 0, cp Product Selection Permitted - Amoxicillin 875 mg Oral Tablet - take 1 tablet by ORAL route every 12 hours for 10 days; 20 tablet; Refills: 0, cp Product Selection Permitted - Ibuprofen 800 mg Oral Tablet - take 1 tablet by ORAL route every 8 hours As needed take with food; 30 tablet; cp Refills: 0, Product Selection Permitted - Zofran 4 mg Oral Tablet - take 1 tablet by ORAL route every 12 hours As needed; 20 tablet; Refills: 0, cp Product Selection Permitted - Albuterol Sulfate 2.5 mg /3 mL (0.083 %) Inhalation Solution for Nebulization - inhale 1 unit by NEBULIZATION route every 8 hours As needed; 1 box; Refills: 0, cp Product Selection Permitted Signatures: Dispatcher [employer] EDMS Delonte Massey PA PA cp Jossie Garcia RN RN kr3 Ruth Lemus RN RN mb9 Reggie Luna MD MD rt Corrections: (The following items were deleted from the chart) 19:33 19:32 Constitutional: Positive for body aches, chills, fever, cp cp
--- NOTE | 2022-10-18 20:52 | ER ---
Nurse's Notes [facility] Name: Roxy Wolff Age: 42 yrs Sex: Female : 1980 Arrival Date: 10/18/2022 Time: 18:22 Bed 9 Private MD: Diagnosis: SARS-associated coronavirus as the cause of diseases classified elsewhere;Streptococcal pharyngitis;Nausea with vomiting, unspecified;Headache Presentation: 10/18 18:34 Chief complaint: Patient states: "I can't get my fever to break and I'm freezing. I mb9 took a rapid COVID test at home and it came back positive. I feel like crap and have a cramp in my right leg. I started throwing up and having diarrhea yesterday". Coronavirus screen: Vaccine status: Patient reports being unvaccinated. Ebola Screen: No symptoms or risks identified at this time. Initial Sepsis Screen: Does the patient meet any 2 criteria? No. Patient's initial sepsis screen is negative. Does the patient have a suspected source of infection? No. Patient's initial sepsis screen is negative. Risk Assessment: Do you want to hurt yourself or someone else? Patient reports no desire to harm self or others. Onset of symptoms was October 17, 2022. 18:34 Method Of Arrival: Ambulatory 9 18:34 Acuity: JOSR 3 mb9 Triage Assessment: 21:17 Headache History: The patient has had previous headaches and this one is similar to kr3 previous episodes. General: Appears distressed, uncomfortable, Behavior is appropriate for age, anxious, crying. Pain: Complains of pain in all over. 21:18 Pain: Also complains of. kr3 21:18 Pain: Pain. 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 - Social history:: Smoking status: Patient denies any tobacco usage or history of. Screenin:17 [facility] ED Fall Risk Assessment (Adult) History of falling in the last 3 months, kr3 including since admission No falls in past 3 months (0 pts) Confusion or Disorientation No (0 pts) Intoxicated or Sedated No (0 pts) Impaired Gait No (0 pts) Mobility Assist Device Used No (0 pt) Altered Elimination No (0 pt) Score/Fall Risk Level 0 - 2 = Low Risk Oriented to surroundings, Maintained a safe environment, Assessed \\T\\ reinforced patient's understanding of fall precautions, Hourly rounding (assess needs \\T\\ fall precautionary measures) done. Abuse screen: Denies threats or abuse. Nutritional screening: No deficits noted. Tuberculosis screening: No symptoms or risk factors identified. Assessment: 19:30 Reassessment: Patient and/or family updated on plan of care and expected duration. Pain kr3 level reassessed. Patient is alert, oriented x 3, equal unlabored respirations, skin warm/dry/pink. 20:30 Reassessment: Patient and/or family updated on plan of care and expected duration. Pain kr3 level reassessed. Patient is alert, oriented x 3, equal unlabored respirations, skin warm/dry/pink. 21:15 Reassessment: Patient and/or family updated on plan of care and expected duration. Pain kr3 level reassessed. Patient is alert, oriented x 3, equal unlabored respirations, skin warm/dry/pink. Vital Signs: 18:34 BP 101 / 73; Pulse 98; Resp 22; Temp 100.4(O); Pulse Ox 99% on R/A; Weight 84.82 kg; mb9 Height 5 ft. 5 in. (165.10 cm); Pain 10/10; 19:00 BP 106 / 71; Pulse 92; Resp 18; Pulse Ox 100% on R/A; kr3 21:01 BP 109 / 68; Pulse 94; Resp 20; Temp 100.4; Pulse Ox 98% on R/A; kr3 18:34 Body Mass Index 31.12 (84.82 kg, 165.10 cm) mb9 ED Course: 18:22 Patient arrived in ED. am2 18:34 Arm band placed on. mb9 18:36 Triage completed. 9 18:38 Jossie Garcia RN is Primary Nurse. kr3 18:41 Delonte Massey PA is PHCP. cp 18:41 Reggie Luna MD is Attending Physician. cp 20:25 Notified Nurse Practitioner and/or Physician Licensed Marine Engineer of a critical lab result(s), andrea burger positive. 21:18 Bed in low position. Call light in reach. Side rails up X 1. kr3 21:18 No provider procedures requiring assistance completed. IV discontinued, intact, kr3 bleeding controlled, No redness/swelling at site. Pressure dressing applied. Administered Medications: 19:35 Drug: NS 0.9% 1000 ml Route: IV; Rate: 1 bolus; Site: right antecubital; kr3 21:20 Follow up: Response: No adverse reaction; IV Status: Completed infusion; IV Intake: kr3 1000ml 19:40 Drug: Pepcid (famotidine) 20 mg Route: IVP; Site: right antecubital; kr3 21:21 Follow up: Response: No adverse reaction kr3 19:44 Drug: TORadol - (ketorolac) 15 mg Route: IVP; Site: right antecubital; kr3 21:20 Follow up: Response: No adverse reaction kr3 19:45 Drug: Zofran (Ondansetron) 4 mg Route: IVP; Site: right antecubital; kr3 21:20 Follow up: Response: No adverse reaction kr3 21:01 Drug: Augmentin (Amoxicillin-Clavulanate) 875 mg Route: PO; kr3 21:20 Follow up: Response: No adverse reaction kr3 Medication: 21:18 VIS not applicable for this client. kr3 Intake: 21:20 IV: 1000ml; Total: 1000ml. kr3 Outcome: 20:51 Discharge ordered by MD. cp 21:17 Patient left the ED. kr3 21:18 Discharged to home ambulatory. kr3 21:18 Condition: stable 21:18 Discharge instructions given to patient, Instructed on discharge instructions, follow up and referral plans. medication usage, Demonstrated understanding of instructions, follow-up care, medications, Prescriptions given X 6 Signatures: Jennifer Thompson RN RN kl Page, Corey, PA PA cp Shannan Vasquez am2 Jossie Garcia RN RN kr3 Ruth Lemus RN RN mb9 Corrections: (The following items were deleted from the chart) 18:37 18:34 BP 133 / 122; Pulse 98bpm; Resp 22bpm; Pulse Ox 99% RA; Temp 99.8F; 84.82 kg; mb9 Height 5 ft. 5 in.; BMI: 31.1; Pain 10/10; mb9 18:40 18:34 BP 101 / 73; Pulse 98bpm; Resp 22bpm; Pulse Ox 99% RA; Temp 99.8F; 84.82 kg; mb9 Height 5 ft. 5 in.; BMI: 31.1; Pain 10/10; mb9 20:03 18:34 Acuity: JOSR 4 mb9 mb9 20:04 18:34 Chief complaint: Patient states: "I can't get my fever to break and I'm freezing. mb9 I took a rapid COVID test at home and it back positive. I feel like crap and have a cramp in my right leg. I started throwing up and having diarrhea yesterday" mb9
[2022-10-18] MEDS ORDERED: AMOX/K CLAV 875 MG TAB ONE (20:59)
[2022-10-18 22:10] VITALS: TEMP 100.4
[2022-10-18 22:12] VITALS: BP 109/68; O2SAT 98
== END 2022-10-18 21:17 | disposition home or self-care (01) ==
LOC: ER 18:16
DX: U07.1 COVID-19 (principal); J02.0 Streptococcal pharyngitis; R11.2 Nausea with vomiting, unspecified; Z88.1 Allergy status to other antibiotic agents
CPT/HCPCS: 96361; 93005; 85025; 36415; 81025; 87081; 83690; 80053; 0240U; 96375; 96374; 99283; J7030; J2405; 81003; 81015

== ENCOUNTER 2023-04-23 16:33 | Emergency (ER) | payer OTHER ==
--- OUTSIDE RECORDS SUMMARY | 2023-04-23 16:42 | XMS REPORT | Continuity of Care Document ---
:1980 Author Organization [facility] t Address [address] [place] [address] Care Team Providers Name Role Phone Claudy [...] rs active active ity of problems problems [facility] Allergies, Adverse Reactions, Alerts Allergy Allergy Status Severity Reaction(s) Onset Inactive Treating Comm ents Source Name Type Date Date Clinician Doxycycl Propensi Active Other - See 2019-09 Blisters Univers ine ty to comments 0-05 ity of adverse 00:00: [place] reaction 00 [facility] DOXYCYCL DRUG Active Hives 2019-09 Univers INE INGREDI 0-05 ity of 00:00: [place] 00 Medical [place] NO KNOWN Drug Active Univers ALLERGIE Class ity of S [facility] Social History Social Habit Start Date Stop Date Quantity Comments Source Sex Assigned At [facility] Medical Branch Exposure to Not sure [facility] SARS-CoV-2 (event) Medica l Branch Tobacco use and 2020-07-14 2020-07-14 Never used [facility] exposure 00:00:00 00:00:00 Medical Branch History of tobacco 2015-11-08 Smoker [facility] [place] use 00:00:00 Medical Branch Smoking Status Start Date Stop Date Source Former smoker 2020-07-14 00:00:00 2020-07-14 00:00:00 [facility] Unknown if ever smoked [facility] Medications Ordered Filled Start Stop Current Ordering [...] Mon Med ical tablet 2 06/13/20 at [facility] h tablet 2029, SHANICE acetaminoph 2019-09 Yes 4647 1{tbl} Take 1 Un wendy en-codeine 0-05 tablet by ity of (TYLENOL-CO 00:00: mouth [place] DEINE #3) 00 every 4 Medical 300-30 mg (four) Branch tablet hours as needed for Pain (scale 4-6) or Pain (scale 7-10). Indication s: acute pain ibuprofen 2019-09 Yes [id number] 800mg Take 1 U nivers 800 mg [...] Indication s: acute pain ibuprofen 2019-09 Yes [id number] 800mg Take 1 U nivers 800 mg [...] Indication s: acute pain ibuprofen 2019-09 Yes [id number] 800mg Take 1 U nivers 800 mg [...] Indication s: acute pain ibuprofen 2019-09 Yes [id number] 800mg Take 1 U nivers 800 mg [...] Indication s: acute pain ibuprofen 2019-09 Yes [id number] 800mg Take 1 U nivers 800 mg [...] Indication s: acute pain ibuprofen 2019-09 Yes [id number] 800mg Take 1 U nivers 800 mg 0-05 tablet by ity of tablet 00:00: mouth 3 00 (three) Medical times [place] daily with meals. acetaminoph 2019-09 Yes [id number] 1{tbl} Take 1 Un wendy en-codeine 0-05 tablet by ity of (TYLENOL-CO 00:00: mouth [place] DEINE #3) 00 every 4 Medical 300-30 mg (four) Branch tablet hours as needed for Pain (scale 4-6) or Pain (scale 7-10). Indication s: acute pain ibuprofen 2019-09 Yes [id number] 800mg Take 1 U nivers 800 mg 0-05 tablet by ity of tablet 00:00: mouth 3 00 (three) Medical times [place] daily with meals. Vital Signs Vital Name Observation Time Observation Value Comments Source Systolic blood 2020-07-14 16:16:00 114 mm[Hg] Univer sity of pressure [facility] Diastolic blood 2020-07-14 16:16:00 86 mm[facility]Hg[facility] 2020-07-14 16:16:00 106 /min [facility] Body height 2020-07-14 16:16:00 165.1 cm [facility] Body weight 2020-07-14 16:16:00 83.915 kg [facility] BMI 2020-07-14 16:16:00 30.79 kg/m2 Universi ty of [facility] Systolic blood 2020-07-14 16:16:00 114 mm[Hg] Univer sity of pressure [facility] Diastolic blood 2020-07-14 16:16:00 86 mm[Hg] Unive rsity of pressure [facility] Heart rate 2020-07-14 16:16:00 106 /min Universi ty of [facility] Body height 2020-07-14 16:16:00 165.1 cm Universi ty of [facility] Body weight 2020-07-14 16:16:00 83.915 kg Universi ty of [facility] BMI 2020-07-14 16:16:00 30.79 kg/m2 Universi ty of [facility] Systolic blood 2020-06-17 15:25:00 118 mm[Hg] Univer sity of pressure [facility] Diastolic blood 2020-06-17 15:25:00 76 mm[Hg] Unive rsity of [facility] Heart rate 2020-06-17 15:25:00 64 /min Universi ty of [facility] Body height 2020-06-17 15:25:00 165.1 cm Universi ty of [facility] Oxygen saturation in 2020-06-14 02:43:52 99 /min University Arterial blood by [facility] Pulse oximetry Branch Systolic blood 2020-06-14 02:43:52 111 mm[Hg] Univer sity of [facility] Diastolic blood 2020-06-14 02:43:52 78 mm[Hg] Unive rsity of [facility] Heart rate 2020-06-14 02:43:52 83 /min Universi ty of [facility] Respiratory rate 2020-06-14 02:43:52 20 /min Univ ersity of [facility] Body temperature 2020-06-14 00:02:00 37.28 Mirela Univ ersity of [facility] Body height 2020-06-14 00:02:00 165.1 cm Universi ty of [facility] Body weight 2020-06-14 00:02:00 83.915 kg Universi ty of [facility] BMI 2020-06-14 00:02:00 30.79 kg/m2 Universi ty of [facility] Procedures Procedure Date / Time Performed Performing Clinician Sourc e XR ANKLE 3+ VW RIGHT 2020-07-14 16:15:27 [facility] XR ANKLE 3+ VW RIGHT 2020-06-14 01:19:41 Jason Menchaca [facility] it of [facility] XR FOOT <3 VW RIGHT 2020-06-14 01:19:41 Julia Sims [facility] ity [facility] NOTICE OF PRIVACY 2020-06-13 23:55:31 Doctor Unassigned, No [facility] PRACTICES Name Medical Branch ED ORTHOPEDIC INJURY 2020-06-13 23:55:00 Julia Sims [facility] TREATMENT - LOWER [facility] Branch EXTREMITY CONSENT/REFUSAL FOR 2020-06-13 23:54:36 Doctor Unassigned, No [facility] Encounters Start End Encounter Admission Attending Care Care Encounter Source Date/Time Date/Time Type Type Clinicians Facility Department ID 2020-07-14 2020-07-14 [facility] [id number] 10:15:25 23:59:00 Encounter Claudy Batista [id number] Surgical [id number] Specialti [id number] es 809 [place] 2020-07-14 2020-07-14 [facility] [id number] [facility] 10:15:25 23:59:00 Encounter Claudy Batista [id number] ity of Surgical [id number] Xander as Specialti [id number] Az dical es 809 [facility] 2020-07-14 2020-07-14 Office [facility] [id number] 10:12:40 10:32:26 Visit Claudy [facility] [id number] Surgical [id number] Specialti [id number] es 198 [place] 2020-07-14 2020-07-14 Office [facility] [id number] Univers 10:12:40 10:32:26 Visit Claudy Batista [id number] it y of Surgical [id number] Xander as Specialti [id number] Az dical es 198 [facility] 2020-07-14 2020-07-14 [facility] [id number] Univers 10:15:00 10:15:00 CLAUDY landrum [facility] 2020-06-20 2020-06-20 Telephone Sara [facility] [id number] Univers 00:00:00 00:00:00 Claudy Wood [facility] [id number] it y of Surgical [id number] Xander as Specialti [id number] Az dical es 198 [facility] 2020-06-17 2020-06-17 [facility] [id number] Univers 10:02:27 10:58:05 Visit Claudy Wood [facility] [id number] it y of Surgical [id number] Xander as Specialti [id number] Az dical es 198 [facility] 2020-06-17 2020-06-17 [facility] [id number] Univers 10:15:00 10:15:00 [facility] 2020-06-13 2020-06-13 Emergency [facility] [id number] Univers 19:03:00 22:31:00 Julia Coyle [id number] ity [facility] [id number] [facility] [id number] [facility] 084 [place] 2020-06-13 2020-06-13 Emergency X [facility] ERT [id number] Univers 18:55:00 18:55:00 ity of [facility] Results Test Description Test Time Test Comments Results Result [facility] e Comments XR ANKLE 3+ VW Avulsion fracture Uni versity of RIGHT 5 stable position [place] Med ical 17:40:01 Branch XR FOOT <3 VW No fracture or Univers ity of RIGHT 6 dislocation of the [facility] 02:19:40 right foot. RL: [id number] Patient name: EMELY SALEH MAXIMILIAN: 1980 39 years EXAMINATION: XR FOOT <3 VW RIGHT Ordering Physician: JULIA SIMS CLINICAL HISTORY:inversion injury r/o fx COMPARISON:None TECHNIQUE:Frontal, oblique, and lateral views of the right foot performed. FINDINGS:Soft tissue swelling in the dorsal foot. No fracture or dislocationidentified . Lisfranc's joint is aligned. No osseous lesions or joint spacenarrowing. Ut, Radiant Results Inft User - 06/13/2020 9:20 [...] dystrophic subcutaneous calcification isseen within the heel. Ut, Radiant Results Inft User - 06/13/2020 9:17 [...]
--- NOTE | 2023-04-23 18:01 | RAD REPORT ---
EXAM DESCRIPTION: RAD - Hand Right 3 View - 04/23/2023 5:39 pm CLINICAL HISTORY: PAIN COMPARISON: No comparisons TECHNIQUE: Right hand, 3 views. FINDINGS: No fracture is identified. There is no dislocation or periosteal reaction noted. No foreign body or other soft tissue abnormalit y. IMPRESSION: Negative right hand examination.
--- NOTE | 2023-04-23 18:17 | EDPHYS ---
Physician Documentation [facility] Name: Roxy Wolff Age: 42 yrs Sex: Female : 1980 Arrival Date: 04/23/2023 Time: 16:33 Bed 12 Private MD: ED Physician Anthony Sousa HPI: 04/23 20:23 This 42 yrs old Female presents to ER via Ambulatory with complaints of Hand Injury, kb Hand Swelling, Laceration To Hand. 20:23 The patient or guardian reports an abrasion, injury, pain. The complaints affect the kb Right first web space and heel of right hand. Context: The problem was sustained at home, resulted from a fall. Onset: The symptoms/episode began/occurred 6 day(s) ago. Modifying factors: The symptoms are alleviated by nothing, the symptoms are aggravated by nothing. Associated signs and symptoms: The patient has no apparent associated signs or symptoms. Severity of symptoms: At their worst the symptoms were mild, moderate, in the emergency department the symptoms are unchanged. The patient has not experienced similar symptoms in the past. The patient has not recently seen a physician. 20:32 Patient reports she fell while holding a glass jar on and injured her right kb hand. Reports the swelling is gotten better but she still having intermittent tingling to first and second digit of right hand. Abrasions noted. No signs of infection.. 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 Last tetanus immunization: unknown. - Social history:: Smoking status: Patient/guardian denies using tobacco, the patient reports quitting approximately 6 years ago, Patient uses street drugs, marijuana. ROS: 20:21 Constitutional: Negative for fever, chills, and weight loss. kb 20:21 MS/extremity: Positive for abrasion, pain, tenderness, tingling, of the right hand. 20:21 All other systems are negative. Exam: 20:21 Constitutional: This is a well developed, well nourished patient who is awake, alert, kb and in no acute distress. Head/Face: Normocephalic, atraumatic. ENT: Moist Mucous membranes Cardiovascular: Regular rate and rhythm with a normal S1 and S2. No gallops, murmurs, or rubs. No pulse deficits. Respiratory: Respirations even and unlabored. No increased work of breathing. Talking in full sentences MS/ Extremity: Pulses equal, no cyanosis. Neurovascular intact. Full, normal range of motion. Neuro: Awake and alert, GCS 15, oriented to person, place, time, and situation. Moves all extremities. Normal gait. 20:21 Skin: injury, abrasion(s), small abrasion noted, of the heel of right hand and Right first web space. Vital Signs: 16:45 BP 116 / 67; Pulse 59; Resp 17; Temp 98.5; Pulse Ox 100% ; Weight 87.09 kg; Pain 7/10; ap3 18:26 BP 122 / 72; Pulse 74; Resp 16; Pulse Ox 99% on R/A; mb9 16:45 Pain Scale: Adult ap3 MDM: 16:41 Patient medically screened. kb 20:22 Differential diagnosis: contusion, sprain, fracture, abrasion, cellulitis, laceration, kb tendon injury. Data reviewed: vital signs, nurses notes. Counseling: I had a detailed discussion with the patient and/or guardian regarding: the historical points, exam findings, and any diagnostic results supporting the discharge/admit diagnosis, radiology results, the need for outpatient follow up, a hand specialist, to return to the emergency department if symptoms worsen or persist or if there are any questions or concerns that arise at home. 20:23 ED course: Pt has full ROM of hand and fingers, cap refill less than 2 seconds. Full kb sensation. No redness, drainage, warmth.. 04/23 16:45 Order name: Hand Right 3 View XRAY; Complete Time: 18:16 kb Administered Medications: No medications were administered Disposition: 21:13 Co-signature as Attending Physician, Anthony Sousa DO I was immediately available on-site ms3 in the Emergency Department for consultation in the care of the patient. Disposition Summary: 04/23/23 18:16 Discharge Ordered Location: Home kb Condition: Stable kb Diagnosis - Abrasion of right hand kb - Pain in right hand kb Followup: kb - With: - When: 2 - 3 days - Reason: Recheck today's complaints Followup: kb - With: Emergency Department - When: As needed - Reason: Worsening of condition Followup: kb - With: Private Physician - When: 2 - 3 days - Reason: Recheck today's complaints, Continuance of care, Re-evaluation by your physician Discharge Instructions: - Discharge Summary Sheet kb - Musculoskeletal Pain kb Forms: - Medication Reconciliation Form kb - Thank You Letter kb - Antibiotic Education kb - Prescription Opioid Use kb - Patient Portal Instructions kb - Leadership Thank You Letter kb Prescriptions: - Diclofenac Sodium 75 mg Oral tablet,delayed release (DR/EC) - take 1 tablet by ORAL route 2 times per day As needed; 30 tablet; Refills: 0, kb Product Selection Permitted Signatures: Dispatcher [employer] EDMS Angy Ceballos, Shannan Norman RN RN ap3 Anthony Sousa DO DO ms3 Corrections: (The following items were deleted from the chart) 20:33 20:23 ED course: Pt has full ROM of hand and fingers, cap refill less than 2 seconds. kb Full sensation. kb
--- NOTE | 2023-04-23 18:17 | ER ---
Nurse's Notes [facility] Name: Roxy Wolff Age: 42 yrs Sex: Female : 1980 Arrival Date: 04/23/2023 Time: 16:33 Bed 12 Private MD: Diagnosis: Abrasion of right hand;Pain in right hand Presentation: 04/23 16:45 Chief complaint: Patient states: she cut her right hand on a glass jar ap3 04/18/23, and reports she lost sensation in the hand at that time. patient states that the feeling has not returned. Coronavirus screen: At this time, the client does not indicate any symptoms associated with coronavirus-19. Ebola Screen: No symptoms or risks identified at this time. Initial Sepsis Screen: Does the patient meet any 2 criteria? No. Patient's initial sepsis screen is negative. Does the patient have a suspected source of infection? Yes: Skin breakdown/wound. Risk Assessment: Do you want to hurt yourself or someone else? Patient reports no desire to harm self or others. Onset of symptoms was April 18, 2023. 16:45 Method Of Arrival: Ambulatory ap3 16:45 Acuity: OJSR 4 ap3 Triage Assessment: 16:48 General: Appears in no apparent distress. Behavior is calm, cooperative, appropriate ap3 for age. Pain: Complains of pain in right hand. Neuro: Level of Consciousness is awake, alert, obeys commands, Oriented to person, place, time, situation. Cardiovascular: Patient's skin is warm and dry. Respiratory: Airway is patent Respiratory effort is even, unlabored, Respiratory pattern is regular, symmetrical. Derm: Wound noted right hand. Musculoskeletal: Reports pain in right hand. 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 Last tetanus immunization: unknown. - Social history:: Smoking status: Patient/guardian denies using tobacco, the patient reports quitting approximately 6 years ago, Patient uses street drugs, marijuana. Screenin:48 [facility] ED Fall Risk Assessment (Adult) History of falling in the last 3 months, ap3 including since admission No falls in past 3 months (0 pts). Abuse screen: Denies threats or abuse. Nutritional screening: No deficits noted. Tuberculosis screening: No symptoms or risk factors identified. Assessment: 16:51 Reassessment: see triage assessment. mb9 17:54 Reassessment: No changes from previously documented assessment. Patient and/or family mb9 updated on plan of care and expected duration. Pain level reassessed. Patient is alert, oriented x 3, equal unlabored respirations, skin warm/dry/pink. Vital Signs: 16:45 BP 116 / 67; Pulse 59; Resp 17; Temp 98.5; Pulse Ox 100% ; Weight 87.09 kg; Pain 7/10; ap3 18:26 BP 122 / 72; Pulse 74; Resp 16; Pulse Ox 99% on R/A; mb9 16:45 Pain Scale: Adult ap3 ED Course: 16:39 Patient arrived in ED. kj1 16:41 Angy Ceballos FNP-C is [facility]. kb 16:41 Anthony Sousa DO is Attending Physician. kb 16:47 Triage completed. ap3 16:48 Arm band placed on left wrist. ap3 16:51 Ruth Lemus, HEATHER is Primary Nurse. mb9 16:51 Bed in low position. Call light in reach. Side rails up X 1. Client placed on mb9 continuous cardiac and pulse oximetry monitoring. NIBP monitoring applied. 17:40 Hand Right 3 View XRAY In Process Unspecified. EDMS 18:16 Karan Phipps MD is Referral Physician. kb 18:17 No provider procedures requiring assistance completed. Patient did not have IV access mb9 during this emergency room visit. Administered Medications: No medications were administered Medication: 16:51 VIS not applicable for this client. mb9 Outcome: 18:16 Discharge ordered by . kb 18:26 Discharged to home ambulatory. mb9 18:26 Condition: stable 18:26 Discharge instructions given to patient, Instructed on discharge instructions, follow up and referral plans. Demonstrated understanding of instructions, follow-up care, medications, Prescriptions given X 1. 18:26 Patient left the ED. mb9 Signatures: Dispatcher [employer] EDMS Ceballos Angy, STATOR TESTER-C STATOR TESTER-Nathanb Shannan Velásquez, RN RN ap3 Michelle Ceballos1 Ruth Lemus, RN RN mb9
[2023-04-23 18:55] VITALS: TEMP 98.5
[2023-04-23 18:59] VITALS: BP 122/72; O2SAT 99
== END 2023-04-23 18:26 | disposition home or self-care (01) ==
LOC: ER 16:33
DX: S60.511A Abrasion of right hand, initial encounter (principal); Z88.1 Allergy status to other antibiotic agents
CPT/HCPCS: 99283

== ENCOUNTER → 2023-10-04 | Emergency (ER) | payer OTHER ==
[~2023-10-04] MED LIST: CODEINE 30MG/APAP 300MG TAB ONE; IBUPROFEN 400 MG TAB ONE; PROMETHAZINE 25 MG TABLET ONE
--- OUTSIDE RECORDS SUMMARY | 2023-10-04 10:59 | XMS REPORT | Continuity of Care Document ---
Author Name Unknown Address [address] [place] [address] [facility] thconnect Address [address] [place] [address] Care Team Providers Care Ems Manager Name Role Phone Claudy Rogers MD Attending Clinician CLAUDY ROGERS Attending Clinician Saima Brady AREA DIRECTOR, Julia Fink Attending Clinician Payers Payer Name Policy Type Policy Number Effective Date Expirati on Date Source Problems Condition Name Condition Details Condition Category Status Onset Date Resolution Date Last Treatment Date Treating Clinician Comments Source No known active problems No known active problems Disease [facility] Allergies, Adverse Reactions, Alerts Allergy Name Allergy Type Status Severity Reaction(s) Onset Date Inactive Date Treating Clinician Comments Source Doxycycl ine Propensi ty to adverse reaction s Active Other - See comments 2019-09 00:00: 00 Blisters [facility] DOXYCYCL INE DRUG INGREDI Active Hives 2019-09 00:00: 00 [facility] NO KNOWN ALLERGIE S Drug Class Active [facility] Social History Social Habit Start Date Stop Date Quantity Comments Source Sex Assigned At [facility] Exposure to SARS-CoV-2 (event) Not sure [facility] Tobacco use and exposure 2020-07-14 00:00:00 2020-07-14 00:00:00 Never used [facility] History of tobacco use 2015-11-08 00:00:00 Smoker [facility] Smoking Status Start Date Stop Date Source Former smoker 2020-07-14 00:00:00 2020-07-14 00:00:00 [facility] Unknown if ever smoked Unive [facility] Medications Ordered Medication Name Filled Medication Name Start Date Stop Date Current Medication? Ordering Clinician Indication Dosage Frequency Signature (SIG) Comments Components Source traMADoL 50 mg tablet 2019-09 00:00: 00 Yes [id number] 50mg Take 1 tablet by mouth every 4 (four) hours as needed for Pain (scale 4-6). Indication s: chronic pain [facility] traMADoL 50 mg tablet 2019-09 00:00: 00 Yes [id number] 50mg Take 1 tablet by mouth every 4 (four) hours as needed for Pain (scale 4-6). Indication s: chronic pain [facility] traMADoL 50 mg tablet 2019-09 00:00: 00 Yes [id number] 50mg Take 1 tablet by mouth every 4 (four) hours as needed for Pain (scale 4-6). Indication s: chronic pain [facility] traMADoL 50 mg tablet 2019-09 00:00: 00 Yes [id number] 50mg Take 1 tablet by mouth every 4 (four) hours as needed for Pain (scale 4-6). Indication s: chronic pain [facility] ibuprofen (IBU) tablet 800 mg 2019-09 01:30: 00 06-14 00:50 :00 No 800mg 800 mg, Oral, ONCE, 1 dose, 06/13/20 at 2030, SHANICE [facility] HYDROcodone -acetaminop hen (NORCO 5) 5-325 mg tablet 2 tablet 2019-09 01:30: 00 06-14 00:50 :00 No 2{tbl} 2 tablet, Oral, ONCE, 1 dose, 06/13/20 at 2030, SHANICE [facility] acetaminoph en-codeine (TYLENOL-CO DEINE #3) 300-30 mg tablet 2019-09 00:00: 00 Yes [id number] 1{tbl} Take 1 tablet by mouth every 4 (four) hours as needed for Pain (scale 4-6) or Pain (scale 7-10). Indication s: acute pain [facility] ibuprofen 800 mg tablet 2019-09 00:00: 00 Yes [id number] 800mg Take 1 tablet by mouth 3 (three) times daily with meals. [facility] acetaminoph en-codeine (TYLENOL-CO DEINE #3) 300-30 mg tablet 2019-09 00:00: 00 Yes [id number] 1{tbl} Take 1 tablet by mouth every 4 (four) hours as needed for Pain (scale 4-6) or Pain (scale 7-10). Indication s: acute pain [facility] ibuprofen 800 mg tablet 2019-09 00:00: 00 Yes [id number] 800mg Take 1 tablet by mouth 3 (three) times daily with meals. [facility] acetaminoph en-codeine (TYLENOL-CO DEINE #3) 300-30 mg tablet 2019-09 00:00: 00 Yes [id number] 1{tbl} Take 1 tablet by mouth every 4 (four) hours as needed for Pain (scale 4-6) or Pain (scale 7-10). Indication s: acute pain [facility] ibuprofen 800 mg tablet 2019-09 00:00: 00 Yes [id number] 800mg Take 1 tablet by mouth 3 (three) times daily with meals. [facility] acetaminoph en-codeine (TYLENOL-CO DEINE #3) 300-30 mg tablet 2019-09 0 00:00: 00 Yes [id number] 1{tbl} Take 1 tablet by mouth every 4 (four) hours as needed for Pain (scale 4-6) or Pain (scale 7-10). Indication s: acute pain [facility] ibuprofen 800 mg tablet 2019-09 0 00:00: 00 Yes [id number] 800mg Take 1 tablet by mouth 3 (three) times daily with meals. [facility] (TYLENOL-CO DEINE #3) 300-30 mg tablet 2019-09 0 00:00: 00 Yes [id number] 1{tbl} Take 1 tablet by mouth every 4 (four) hours as needed for Pain (scale 4-6) or Pain (scale 7-10). Indication s: acute pain [facility] ibuprofen 800 mg tablet 2019-09 00:00: 00 Yes [id number] 800mg Take 1 tablet by mouth 3 (three) times daily with meals. [facility] acetaminoph en-codeine (TYLENOL-CO DEINE #3) 300-30 mg tablet 2019-09 00:00: 00 Yes [id number] 1{tbl} Take 1 tablet by mouth every 4 (four) hours as needed for Pain (scale 4-6) or Pain (scale 7-10). Indication s: acute pain [facility] ibuprofen 800 mg tablet 2019-09 00:00: 00 Yes [id number] 800mg Take 1 tablet by mouth 3 (three) times daily with meals. [facility] acetaminoph en-codeine (TYLENOL-CO DEINE #3) 300-30 mg tablet 2019-09 00:00: 00 Yes [id number] 1{tbl} Take 1 tablet by mouth every 4 (four) hours as needed for Pain (scale 4-6) or Pain (scale 7-10). Indication s: acute pain [facility] ibuprofen 800 mg tablet 2019-09 00:00: 00 Yes [id number] 800mg Take 1 tablet by mouth 3 (three) times daily with meals. [facility] Vital Signs Vital Name Observation Time Observation Value Comments [facility] Systolic blood pressure 2020-07-14 16:16:00 114 [facility] Diastolic blood pressure 2020-07-14 16:16:00 86 mm[facility]Hg[facility] Heart rate 2020-07-14 16:16:00 106 /min [facility] Body height 2020-07-14 16:16:00 165.1 cm [facility] Body weight 2020-07-14 16:16:00 83.915 kg [facility] BMI 2020-07-14 16:16:00 30.79 kg/m2 [facility] Systolic blood pressure 2020-07-14 16:16:00 114 mm[Hg[facility] Diastolic blood pressure 2020-07-14 16:16:00 86 mm[Hg[facility] Heart rate 2020-07-14 16:16:00 106 /min Un[facility] Body height 2020-07-14 16:16:00 165.1 cm [facility] Body weight 2020-07-14 16:16:00 83.915 kg [facility] BMI 2020-07-14 16:16:00 30.79 kg/m2 [facility] Systolic blood pressure 2020-06-17 15:25:00 118 mm[Hg[facility] Diastolic blood pressure 2020-06-17 15:25:00 76 mm[Hg[facility] Heart rate 2020-06-17 15:25:00 64 /min [facility] Body height 2020-06-17 15:25:00 165.1 cm [facility] Oxygen saturation in Arterial blood by Pulse oximetry 2020-06-14 02:43:52 99 /min [facility] Systolic blood pressure 2020-06-14 02:43:52 111 mm[Hg[facility] Diastolic blood pressure 2020-06-14 02:43:52 78 mm[Hg[facility] Heart rate 2020-06-14 02:43:52 83 /min [facility] Respiratory rate 2020-06-14 02:43:52 20 /min [facility] Body temperature 2020-06-14 00:02:00 37.28 Mirela [facility] Body height 2020-06-14 00:02:00 165.1 cm [facility] Body weight 2020-06-14 00:02:00 83.915 kg [facility] BMI 2020-06-14 00:02:00 30.79 kg/m2 [facility] Procedures Procedure Date / Time Performed Performing Clinicia n Source XR ANKLE 3+ VW RIGHT 2020-07-14 16:15:27 Augusta Rogers [facility] XR ANKLE 3+ VW RIGHT 2020-06-14 01:19:41 Jason Menchaca [facility] XR FOOT <3 VW RIGHT 2020-06-14 01:19:41 Julia Brady [facility] NOTICE OF PRIVACY PRACTICES 2020-06-13 23:55:31 Doctor Unassigned, [place] [facility] ED ORTHOPEDIC INJURY TREATMENT - LOWER EXTREMITY 2020-06-13 23:55:00 Julia Brady [facility] CONSENT/REFUSAL FOR DIAGNOSIS AND TREATMENT 2020-06-13 23:54:36 Doctor Unassigned, [place] [facility] Encounters Start Date/Time End Date/Time Encounter Type Admission Type Attending [facility] Care Facility Care Department Encounter ID Source 2020-07-14 10:15:25 2020-07-14 23:59:00 Hospital Encounter Claudy Rogers [facility] [place] [id number] 2020-07-14 10:15:25 2020-07-14 23:59:00 Hospital Encounter Claudy Rogers [facility] [place] [id number] [facility] 2020-07-14 10:12:40 2020-07-14 10:32:26 Office Visit RogersClaudy Nina [facility] [place] [id number] 2020-07-14 10:12:40 2020-07-14 10:32:26 Office Visit RogersClaudy [facility] [place] [id number] [facility] 2020-07-14 10:15:00 2020-07-14 10:15:00 Outpatient R CLAUDY ROGERS [facility] [id number] [facility] 2020-06-20 00:00:00 2020-06-20 00:00:00 Telephone Claudy Rogers [facility] jovita [place] [id number] [facility] 2020-06-17 10:02:27 2020-06-17 10:58:05 Office Visit Claudy Rogers [facility] [place] [id number] [facility] 2020-06-17 10:15:00 2020-06-17 10:15:00 Outpatient R CLAUDY ROGERS [facility] [id number] [facility] 2020-06-13 19:03:00 2020-06-13 22:31:00 Emergency Julia Brady [facility] [id number] [facility] 2020-06-13 18:55:00 2020-06-13 18:55:00 Emergency X [facility] ERT [id number] [facility] Results Test Description Test Time Test Comments Results Result Comments Source XR ANKLE 3+ VW RIGHT 17:40:01 Avulsion fracture stable position [facility] XR FOOT <3 VW RIGHT 02:19:40 No fracture or dislocation of the right foot. RL: [id number] Patient name: EMELY CHINDOB: 1980 39 years EXAMINATION: XR FOOT <3 VW RIGHT Ordering Physician: JULIA BRADY CLINICAL HISTORY:inversion injury r/o fx COMPARISON:None TECHNIQUE:Frontal, oblique, and lateral views of the right foot performed. FINDINGS:Soft tissue swelling in the dorsal foot. No fracture or dislocationidentified. Lisfranc's joint is aligned. No osseous lesions or joint spacenarrowing. [facility], Radiant Results Inft User - 06/13/2020 9:20 PM CDTPatient name: EMELY CHINDOB: 1980 39 years EXAMINATION: XR FOOT <3 VW RIGHTOrdering Physician: JULIA BRADY CLINICAL HISTORY:inversion injury r/o fx COMPARISON:NoneTECHNIQU E:Frontal, oblique, and lateral views of the right foot performed.FINDINGS:Soft tissue swelling in the dorsal foot. No fracture or dislocationidentified. Lisfranc's joint is aligned. No osseous lesions or joint spacenarrowing.IMPRESSI ONNo fracture or dislocation of the right foot.RL: [id number] [facility] XR ANKLE 3+ VW RIGHT 02:16:45 Impression: 1. Avulsion fracture of the lateral malleolus.2. Calcaneal spur. RL: 460 End of [...] dystrophic subcutaneous calcification isseen within the heel. [facility], [facility] Results Inft User - 06/13/2020 [...] small dystrophic subcutaneous calcification isseen within the heel.IMPRESSIONImpressi on:1. Avulsion fracture of the lateral malleolus.2. Calcaneal spur.RL: 460End of Report [facility]
--- NOTE | 2023-10-04 12:54 | EDPHYS ---
Physician Documentation [facility] Name: Roxy Wolff Age: 42 yrs Sex: Female : 1980 Arrival Date: 10/04/2023 Time: 10:57 Bed 11 Private MD: ED Physician Maximus Doss HPI: 10/04 11:12 This 42 yrs old Female presents to ER via Ambulatory with complaints of Flu sp4 Symptoms. 11:12 Patient presents with 4 days of flulike symptoms.. Tested positive at home for COVID-19 sp4 . 11:30 Patient states she has fever, cough, headache, feeling unwell overall, sore throat. . sp4 Historical: - Allergies: 11:10 Doxycycline; ll1 - PMHx: 11:10 Anxiety; Arthritis; Asthma; Gout; Migraines; Tumors throughout my body; ll1 - PSHx: 11:10 6 tumors removed.; L knee SX; partial hyst.; ll1 - Immunization history:: Adult Immunizations up to date. - Social history:: Smoking status: Patient denies any tobacco usage or history of. - Family history:: not pertinent. ROS: 11:30 Constitutional: Positive fever, positive cough, positive headache, positive sore throat sp4 11:30 All other systems are negative, Exam: 11:30 Constitutional: This is a well developed, well nourished patient who is awake, alert, sp4 and in no acute distress. Head/Face: Normocephalic, atraumatic. Eyes: Pupils equal round and reactive to light, extra-ocular motions intact. Lids and lashes normal. Conjunctiva and sclera are not injected. Cornea within normal limits. Periorbital areas with no swelling, redness, or edema. ENT: Nares patent. No nasal discharge, no septal abnormalities noted. Tympanic membranes are normal and external auditory canals are clear. Oropharynx with no redness, swelling, or masses, exudates, or evidence of obstruction, uvula midline. Mucous membranes moist. Neck: Trachea midline, no thyromegaly or masses palpated, and no cervical lymphadenopathy. Supple, full range of motion without nuchal rigidity, or vertebral point tenderness. Chest/axilla: Normal chest wall appearance and motion. Nontender with no deformity. No lesions are appreciated. Cardiovascular: Regular rate and rhythm with a normal S1 and S2. No gallops, murmurs, or rubs. Normal PMI, no JVD. No pulse deficits. Respiratory: Lungs have equal breath sounds bilaterally, clear to auscultation and percussion. No rales, rhonchi or wheezes noted. No increased work of breathing, no retractions or nasal flaring. Abdomen/GI: Soft, non-tender, with normal bowel sounds. No distension or tympany. No guarding or rebound. No evidence of tenderness throughout. Back: No spinal tenderness. No costovertebral tenderness. Skin: Warm, dry with normal turgor. Normal color with no rashes, no lesions, and no evidence of cellulitis. MS/ Extremity: Pulses equal, no cyanosis. Neurovascular intact. Full, normal range of motion. Neuro: Awake and alert, GCS 15, oriented to person, place, time, and situation. Cranial nerves II-XII grossly intact. Motor strength 5/5 in all extremities. Sensory grossly intact. Psych: Awake, alert, with orientation to person, place and time. Behavior, mood, and affect are within normal limits Vital Signs: 11:09 BP 124 / 78; Pulse 98; Resp 18; Temp 97.3; Pulse Ox 100% ; Weight 88.45 kg; Height 5 ll1 ft. 5 in. ; Pain 7/10; 11:09 Body Mass Index 32.45 (88.45 kg, 165.1 cm) ll1 11:09 Pain Scale: Adult ll1 MDM: 12:36 Patient medically screened. sp4 12:58 Differential Diagnosis altered mental status, sepsis, flu. Data reviewed: vital signs, sp4 nurses notes, lab test result(s), Flu: negative. ED course: Influenza negative. COVID was positive at home. Will prescribe Paxlovid. . 10/04 11:12 Order name: Influenza Screen (a \T\ B); Complete Time: 12:50 sp4 Administered Medications: 11:44 Drug: Acetaminophen-Codeine PO (300 mg-30 mg) 2 tabs PO once; RASS on ADMIN: Combtv4, ll1 Very Agttd3, Agttd2, Rstlss1, AlertClm0, Drwsy-1, Lt Sdtn-2, Mod Sdtn-3, Dp Sdtn-4, UnArsble-5 Route: PO; 11:44 Drug: Promethazine PO 25 mg PO once Route: PO; ll1 11:44 Drug: Ibuprofen PO 800 mg PO once Route: PO; ll1 Disposition Summary: 10/04/23 12:53 Discharge Ordered Notes: 5 day home quarantine advised Location: Home sp4 Problem: new sp4 Symptoms: have improved sp4 Condition: Stable sp4 Diagnosis - Other specified viral diseases sp4 - COVID -19 sp4 Followup: sp4 - With: Private Physician - When: 7 - 10 days - Reason: Recheck today's complaints Discharge Instructions: - Discharge Summary Sheet sp4 - COVID-19 sp4 Forms: - Patient Portal Instructions sp4 Prescriptions: - Paxlovid 300 mg (150 mg x 2)-100 mg Oral Tablet, Dose Pack - take 1 dose pack ORAL route as directed on dose pack take TWO 150 mg tablets of sp4 nirmatrelvir with ONE 100 mg tablet of ritonavir twice daily for 5 days; 1 Pack; Refills: 0, Product Selection Permitted - dextromethorphan-guaifenesin 60-1,200 mg Oral Tablet, Extended Release 12 hr - take 1 tablet ORAL route every 12 hours PRN cough; 42 tablet; Refills: 0, sp4 Product Selection Permitted - Ibuprofen 800 mg Oral Tablet - take 1 tablet ORAL route every 8 hours As needed take with food; 30 tablet; sp4 Refills: 0, Product Selection Permitted - promethazine 25 mg Oral tablet - take 1 tablet ORAL route every 6 hours As needed PRN cough; 30 tablet; Refills: sp4 0, Product Selection Permitted Signatures: Dispatcher [employer] Fidel Dumont RN RN ll1 Maximus Doss MD MD sp4 Corrections: (The following items were deleted from the chart) 11:10 11:10 PSHx: L knee SX; ll1 ll1
--- NOTE | 2023-10-04 12:54 | ER ---
Nurse's Notes [facility] Name: Roxy Wolff Age: 42 yrs Sex: Female : 1980 Arrival Date: 10/04/2023 Time: 10:57 Bed 11 Private MD: Diagnosis: Other specified viral diseases;COVID -19 Presentation: 10/04 11:09 Chief complaint: Patient states: Cough, congestion, fever, SAN, runny nose for 4 days. ll1 Home covid test positive. Coronavirus screen: Client denies travel out of the [place] in the last 14 days. congestion, cough unrelated to allergies, difficulty breathing, fatigue, fever, headache, muscle pain, Client presents with at least one sign or symptom that may indicate coronavirus-19. Standard/surgical mask placed on the client. Ebola Screen: Patient denies travel to an Ebola-affected area in the 21 days before illness onset. 11:09 Method Of Arrival: Ambulatory ll1 11:09 Initial Sepsis Screen: Does the patient meet any 2 criteria? No. Patient's initial ll1 sepsis screen is negative. Does the patient have a suspected source of infection? No. Patient's initial sepsis screen is negative. Risk Assessment: Do you want to hurt yourself or someone else? Patient reports no desire to harm self or others. Onset of symptoms was October 01, 2023. 11:09 Acuity: JOSR 4 ll1 Triage Assessment: 11:11 General: Appears uncomfortable, Behavior is calm, cooperative, appropriate for age. ll1 General: Reports fever for feeling ill for fatigue for. Pain: Complains of pain in head Quality of pain is described as aching, throbbing. EENT: Reports nasal congestion. Neuro: Reports headache. Respiratory: Reports cough that is dry. Historical: - Allergies: 11:10 Doxycycline; ll1 - PMHx: 11:10 Anxiety; Arthritis; Asthma; Gout; Migraines; Tumors throughout my body; ll1 - PSHx: 11:10 6 tumors removed.; L knee SX; partial hyst.; ll1 - Immunization history:: Adult Immunizations up to date. - Social history:: Smoking status: Patient denies any tobacco usage or history of. - Family history:: not pertinent. Screenin:[address] [facility] ED Fall Risk Assessment (Adult) Score/Fall Risk Level 0 - 2 = Low Risk hb Oriented to surroundings, Maintained a safe environment, Educated pt \T\ family on fall prevention, incl call for assistance when getting out of bed. Abuse screen: Denies threats or abuse. Denies injuries from another. Nutritional screening: No deficits noted. Tuberculosis screening: No symptoms or risk factors identified. Assessment: 11:44 Reassessment: No changes from previously documented assessment. Patient and/or family ll1 updated on plan of care and expected duration. Pain level reassessed. Patient is alert, oriented x 3, equal unlabored respirations, skin warm/dry/pink. 13:22 Reassessment: Patient appears in no apparent distress at this time. Patient and/or hb family updated on plan of care and expected duration. Pain level reassessed. Patient is alert, oriented x 3, equal unlabored respirations, skin warm/dry/pink. Vital Signs: 11:09 BP 124 / 78; Pulse 98; Resp 18; Temp 97.3; Pulse Ox 100% ; Weight 88.45 kg; Height 5 ll1 ft. 5 in. ; Pain 7/10; 11:09 Body Mass Index 32.45 (88.45 kg, 165.1 cm) ll1 11:09 Pain Scale: Adult ll1 ED Course: 11:02 Patient arrived in ED. mr 11:02 Anthony Sousa DO is Attending Physician. ms3 11:10 Arm band placed on Patient placed in an exam room, on a stretcher. ll1 11:11 Attending Physician role handed off by Anthony Sousa DO sp4 11:11 Maximus Doss MD is Attending Physician. sp4 11:14 Triage completed. ll1 11:30 Patient has correct armband on for positive identification. Provided Education on: hb TESTS, RESULT TIMES. 11:30 No provider procedures requiring assistance completed. Patient did not have IV access hb during this emergency room visit. Administered Medications: 11:44 Drug: Acetaminophen-Codeine PO (300 mg-30 mg) 2 tabs PO once; RASS on ADMIN: Combtv4, ll1 Very Agttd3, Agttd2, Rstlss1, AlertClm0, Drwsy-1, Lt Sdtn-2, Mod Sdtn-3, Dp Sdtn-4, UnArsble-5 Route: PO; 11:44 Drug: Promethazine PO 25 mg PO once Route: PO; ll1 11:44 Drug: Ibuprofen PO 800 mg PO once Route: PO; ll1 Medication: 13:22 VIS not applicable for this client. hb Outcome: 12:53 Discharge ordered by . sp4 13:24 Discharged to home ambulatory, hb 13:24 Condition: stable 13:24 Discharge instructions given to patient, Instructed on discharge instructions, follow up and referral plans. medication usage, Demonstrated understanding of instructions, follow-up care, medications, Prescriptions given X 4, 13:24 Patient left the ED. hb Signatures: Ruth Vickers, Reg Reg mr LiJennifer, RN RN hb Fidel Thompson RN RN ll1 Anthony Sousa DO DO ms3 Maximus Doss MD MD sp4 Corrections: (The following items were deleted from the chart) 11:10 11:10 PSHx: L knee SX; ll1 ll1 11:14 11:09 Resp 18bpm; ll1 ll1 11:18 11:09 Resp 18bpm; Pulse Ox 100%; Temp 97.3F; 88.45 kg; Height 5 ft. 5 in.; BMI: 32.4; ll1 Pain 03/18, Adult; ll1
[2023-10-04 14:29] VITALS: BP 124/78; TEMP 97.3; O2SAT 100
== END ==
LOC: ER 10:57
DX: U07.1 COVID-19 (principal); B33.8 Other specified viral diseases; Z88.1 Allergy status to other antibiotic agents
CPT/HCPCS: 87804 ×2; Q0169

== ENCOUNTER → 2023-11-20 | Emergency (ER) | payer OTHER ==
[~2023-11-20] MED LIST changes: -CODEINE 30MG/APAP 300MG TAB ONE; +HYDROCODONE/APAP 10/325 TAB ONE; -IBUPROFEN 400 MG TAB ONE; +MORPHINE 4 MG/ML SYR ONE; -PROMETHAZINE 25 MG TABLET ONE
--- OUTSIDE RECORDS SUMMARY | 2023-11-20 10:25 | XMS REPORT | Continuity of Care Document ---
Author Name Unknown Address [address] [facility] [address] [place] [address] [facility] thconnect Address [address] [facility] [address] [place] [address] Care Team Providers Care Medical Auditor Name Role Phone Claudy Rogers MD Attending Clinician CLAUDY ROGERS Attending Clinician Saima Brady BATTERY CONTAINER INSPECTOR, Julia Fink Attending Clinician [phone] Payers Payer Name Policy Type Policy Number Effective Date Expirati on Date Source Problems Condition Name Condition Details Condition Category Status Onset Date Resolution Date Last Treatment Date Treating Clinician Comments Source No known active problems No known active problems Disease [facility] Allergies, Adverse Reactions, Alerts Allergy Name Allergy Type Status Severity Reaction(s) Onset Date Inactive Date Treating Clinician Comments Source Doxycycl ine Propensi ty to adverse reaction s Active Other - See comments 2019-09 00:00: 00 Blisters [facility] DOXYCYCL INE DRUG INGREDI Active Hives 2019-09 00:00: 00 [facility] NO KNOWN ALLERGIE S Drug Class Active [facility] Social History Social Habit Start Date Stop Date Quantity Comments Source Sex Assigned At [facility] Exposure to SARS-CoV-2 (event) Not sure [facility] Tobacco use and exposure 2020-07-14 00:00:00 2020-07-14 00:00:00 Never used [facility] History of tobacco use 2015-11-08 00:00:00 Smoker [facility] Smoking Status Start Date Stop Date Source Former smoker 2020-07-14 00:00:00 2020-07-14 00:00:00 [facility] Unknown if ever smoked [facility] Medications Ordered Medication Name Filled Medication Name Start Date Stop Date Current Medication? Ordering Clinician Indication Dosage Frequency Signature (SIG) Comments Components Source traMADoL 50 mg tablet 2019-09 00:00: 00 Yes [id number] 50mg Take 1 tablet by mouth every 4 (four) hours as needed for Pain (scale 4-6). Indication s: chronic pain [facility] traMADoL 50 mg tablet 2019-09 00:00: 00 Yes [id number] 50mg Take 1 tablet by mouth every 4 (four) hours as needed for Pain (scale 4-6). Indication s: chronic pain [facility] traMADoL 50 mg tablet 2019-09 00:00: 00 Yes [id number] 50mg Take 1 tablet by mouth every 4 (four) hours as needed for Pain (scale 4-6). Indication s: chronic pain [facility] traMADoL 50 mg tablet 2019-09 00:00: 00 Yes [id number] 50mg Take 1 tablet by mouth every 4 (four) hours as needed for Pain (scale 4-6). Indication s: chronic pain [facility] ibuprofen (IBU) tablet 800 mg 2019-09 01:30: 00 06-14 00:50 :00 No 800mg 800 mg, Oral, ONCE, 1 dose, 06/13/20 at 2030, SHANICE [facility] HYDROcodone -acetaminop hen (NORCO 5) 5-325 mg tablet 2 tablet 2019-09 01:30: 00 06-14 00:50 :00 No 2{tbl} 2 tablet, Oral, ONCE, 1 dose, 06/13/20 at 2030, SHANICE [facility] acetaminoph en-codeine (TYLENOL-CO DEINE #3) 300-30 mg tablet 2019-09 00:00: 00 Yes [id number] 1{tbl} Take 1 tablet by mouth every 4 (four) hours as needed for Pain (scale 4-6) or Pain (scale 7-10). Indication s: acute pain [facility] ibuprofen 800 mg tablet 2019-09 00:00: 00 Yes [id number] 800mg Take 1 tablet by mouth 3 (three) times daily with meals. [facility] acetaminoph en-codeine (TYLENOL-CO DEINE #3) 300-30 mg tablet 2019-09 00:00: 00 Yes [id number] 1{tbl} Take 1 tablet by mouth every 4 (four) hours as needed for Pain (scale 4-6) or Pain (scale 7-10). Indication s: acute pain [facility] ibuprofen 800 mg tablet 2019-09 00:00: 00 Yes [id number] 800mg Take 1 tablet by mouth 3 (three) times daily with meals. [facility] acetaminoph en-codeine (TYLENOL-CO DEINE #3) 300-30 mg tablet 2019-09 00:00: 00 Yes [id number] 1{tbl} Take 1 tablet by mouth every 4 (four) hours as needed for Pain (scale 4-6) or Pain (scale 7-10). Indication s: acute pain [facility] ibuprofen 800 mg tablet 2019-09 00:00: 00 Yes [id number] 800mg Take 1 tablet by mouth 3 (three) times daily with meals. [facility] acetaminoph en-codeine (TYLENOL-CO DEINE #3) 300-30 mg tablet 2019-09 0 00:00: 00 Yes [id number] 1{tbl} Take 1 tablet by mouth every 4 (four) hours as needed for Pain (scale 4-6) or Pain (scale 7-10). Indication s: acute pain [facility] ibuprofen 800 mg tablet 2019-09 0 00:00: 00 Yes [id number] 800mg Take 1 tablet by mouth 3 (three) times daily with meals. [facility]-code[facility] (TYLENOL-CO DEINE #3) 300-30 mg tablet 2019-09 0 00:00: 00 Yes [id number] 1{tbl} Take 1 tablet by mouth every 4 (four) hours as needed for Pain (scale 4-6) or Pain (scale 7-10). Indication s: acute pain [facility] ibuprofen 800 mg tablet 2019-09 00:00: 00 Yes [id number] 800mg Take 1 tablet by mouth 3 (three) times daily with meals. [facility] acetaminoph en-codeine (TYLENOL-CO DEINE #3) 300-30 mg tablet 2019-09 00:00: 00 Yes [id number] 1{tbl} Take 1 tablet by mouth every 4 (four) hours as needed for Pain (scale 4-6) or Pain (scale 7-10). Indication s: acute pain [facility] ibuprofen 800 mg tablet 2019-09 00:00: 00 Yes [id number] 800mg Take 1 tablet by mouth 3 (three) times daily with meals. [facility] acetaminoph en-codeine (TYLENOL-CO DEINE #3) 300-30 mg tablet 2019-09 00:00: 00 Yes [id number] 1{tbl} Take 1 tablet by mouth every 4 (four) hours as needed for Pain (scale 4-6) or Pain (scale 7-10). Indication s: acute pain [facility] ibuprofen 800 mg tablet 2019-09 00:00: 00 Yes [id number] 800mg Take 1 tablet by mouth 3 (three) times daily with meals. [facility] Vital Signs Vital Name Observation Time Observation Value Comments S miracle Systolic blood pressure 2020-07-14 16:16:00 114 mm[Hg] [facility] Diastolic blood pressure 2020-07-14 16:16:00 86 mm[Hg] [facility] Heart rate 2020-07-14 16:16:00 106 /min [facility] Body height 2020-07-14 16:16:00 165.1 cm [facility] Body weight 2020-07-14 16:16:00 83.915 kg [facility] BMI 2020-07-14 16:16:00 30.79 kg/m2 [facility] Systolic blood pressure 2020-07-14 16:16:00 114 mm[Hg] [facility] Diastolic blood pressure 2020-07-14 16:16:00 86 mm[Hg] [facility] Heart rate 2020-07-14 16:16:00 106 /min [facility] Body height 2020-07-14 16:16:00 165.1 cm [facility] Body weight 2020-07-14 16:16:00 83.915 kg [facility] BMI 2020-07-14 16:16:00 30.79 kg/m2 [facility] Systolic blood pressure 2020-06-17 15:25:00 118 mm[Hg] [facility] Diastolic blood pressure 2020-06-17 15:25:00 76 mm[Hg] [facility] Heart rate 2020-06-17 15:25:00 64 /[facility] Body height 2020-06-17 15:25:00 165.1 cm [facility] Oxygen saturation in Arterial blood by Pulse oximetry 2020-06-14 02:43:52 99 /min [facility] Systolic blood pressure 2020-06-14 02:43:52 111 mm[Hg] [facility] Diastolic blood pressure 2020-06-14 02:43:52 78 mm[Hg] [facility] Heart rate 2020-06-14 02:43:52 83 /min [facility] Respiratory rate 2020-06-14 02:43:52 20 /min [facility] Body temperature 2020-06-14 00:02:00 37.28 Mirela [facility] Body height 2020-06-14 00:02:00 165.1 cm [facility] Body weight 2020-06-14 00:02:00 83.915 kg [facility] BMI 2020-06-14 00:02:00 30.79 kg/m2 [facility] Procedures Procedure Date / Time Performed Performing Clinicia n Source XR ANKLE 3+ VW RIGHT 2020-07-14 16:15:27 Augusta Rogers [facility] XR ANKLE 3+ VW RIGHT 2020-06-14 01:19:41 Jason Menchaca [facility] XR FOOT <3 VW RIGHT 2020-06-14 01:19:41 Julia Brady [facility] NOTICE OF PRIVACY PRACTICES 2020-06-13 23:55:31 Doctor Unassigned, [place] [facility] ED ORTHOPEDIC INJURY TREATMENT - LOWER EXTREMITY 2020-06-13 23:55:00 Julia Brady [facility] CONSENT/REFUSAL FOR DIAGNOSIS AND TREATMENT 2020-06-13 23:54:36 Doctor Unassigned, [place] [facility] Encounters Start Date/Time End Date/Time Encounter Type Admission Type Attending [facility] Care Facility Care Department Encounter ID Source 2020-07-14 10:15:25 2020-07-14 23:59:00 Hospital Encounter Claudy Rogers [facility] [place] [id number] 2020-07-14 10:15:25 2020-07-14 23:59:00 Hospital Encounter Claudy Rogers [facility] [place] [id number] [facility] 2020-07-14 10:12:40 2020-07-14 10:32:26 Office Visit RogersClaudy Nina [facility] [place] [id number] 2020-07-14 10:12:40 2020-07-14 10:32:26 Office Visit RogersClaudy [facility] [place] [id number] [facility] 2020-07-14 10:15:00 2020-07-14 10:15:00 Outpatient R CLAUDY ROGERS [facility] [id number] [facility] 2020-06-20 00:00:00 2020-06-20 00:00:00 Telephone Claudy Rogers [facility] j[place]ita [place] [id number] [facility] 2020-06-17 10:02:27 2020-06-17 10:58:05 Office Visit Claudy Rogers [facility] joviat [place] [id number] [facility] 2020-06-17 10:15:00 2020-06-17 10:15:00 Outpatient R CLAUDY ROGERS [facility] [id number] [facility] 2020-06-13 19:03:00 2020-06-13 22:31:00 Emergency Julia Brady [facility] [id number] [facility] 2020-06-13 18:55:00 2020-06-13 18:55:00 Emergency X [facility] ERT [id number] [facility] Results Test Description Test Time Test Comments Results Result Comments Source XR ANKLE 3+ VW RIGHT 17:40:01 Avulsion fracture stable position [facility] XR FOOT <3 VW RIGHT 02:19:40 No [...] aligned. No osseous lesions or joint spacenarrowing. [facility], Radiant Results Inft User - 06/13/2020 9:20 [...] or dislocation of the right foot.RL: [id number] [facility] XR ANKLE 3+ VW RIGHT 02:16:45 Impression: [...] dystrophic subcutaneous calcification isseen within the heel. [facility], [facility] Results Inft User - 06/13/2020 9:17 [...] lateral malleolus.2. Calcaneal spur.RL: 460End of Report [facility]
--- NOTE | 2023-11-20 11:17 | RAD REPORT ---
EXAM DESCRIPTION: RAD - Ankle Right 3 View - 11/20/2023 11:09 am CLINICAL HISTORY: PAIN COMPARISON: Ankle Right 3 View dated 07/02/2021 FINDINGS: Tiny avulsion fracture seen with adjacent soft tissue swelling distal most aspect of the f ibula. No dislocation seen. Tiny plantar calcaneal spur.
--- NOTE | 2023-11-20 11:54 | EDPHYS ---
Physician Documentation [facility] Name: Roxy Wolff Age: 43 yrs Sex: Female : 1980 Arrival Date: 11/20/2023 Time: 10:22 Bed 12 Private MD: None, None ED Physician Reggie Luna HPI: 11/19 13:15 This 43 yrs old Female presents to ER via Wheelchair with complaints of Fall Injury, rt Foot Injury. 13:15 Patient presents to the ED with injury to the right ankle. Patient states that she rt twisted her ankle. Pain is aching nature, nonradiating, no other aggravating or elevating factors.. 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 - Social history:: Smoking status: Patient denies any tobacco usage or history of. - Family history:: not pertinent. ROS: 13:15 Constitutional: Negative for fever, chills, and weight loss, Cardiovascular: Negative rt for chest pain, palpitations, and edema, Respiratory: Negative for shortness of breath, cough, wheezing, and pleuritic chest pain, Abdomen/GI: Negative for abdominal pain, nausea, vomiting, diarrhea, and constipation, Skin: Negative for injury, rash, and discoloration, Neuro: Negative for headache, weakness, numbness, tingling, and seizure, Psych: Negative for depression, anxiety, suicide ideation, homicidal ideation, and hallucinations, 13:15 MS/extremity: Positive for pain, swelling, Exam: 13:15 Constitutional: This is a well developed, well nourished patient who is awake, alert, rt and in no acute distress. Head/Face: Normocephalic, atraumatic. Chest/axilla: Normal chest wall appearance and motion. Nontender with no deformity. No lesions are appreciated. Cardiovascular: Regular rate and rhythm with a normal S1 and S2. No gallops, murmurs, or rubs. Normal PMI, no JVD. No pulse deficits. Respiratory: Lungs have equal breath sounds bilaterally, clear to auscultation and percussion. No rales, rhonchi or wheezes noted. No increased work of breathing, no retractions or nasal flaring. Abdomen/GI: Soft, non-tender, with normal bowel sounds. No distension or tympany. No guarding or rebound. No evidence of tenderness throughout. Neuro: Awake and alert, GCS 15, oriented to person, place, time, and situation. Cranial nerves II-XII grossly intact. Motor strength 5/5 in all extremities. Sensory grossly intact. Cerebellar exam normal. Normal gait. 13:15 Musculoskeletal/extremity: Swelling to the lateral malleolus with tenderness, pulses, motor, sensation intact. Vital Signs: 10:39 BP 140 / 108; Pulse 108; Resp 18; Temp 97.2; Pulse Ox 98% on R/A; Weight 111.13 kg; ll1 Height 5 ft. 5 in. ; Pain 10/10; 11:57 BP 138 / 89; Pulse 89; Resp 16; Pulse Ox 98% on R/A; iw 10:39 Body Mass Index 40.77 (111.13 kg, 165.1 cm) ll1 10:39 Pain Scale: Adult ll1 MDM: 10:34 Patient medically screened. rt 13:15 Differential diagnosis: fracture, sprain, strain. Data reviewed: vital signs, nurses rt notes, radiologic studies. Counseling: I had a detailed discussion with the patient and/or guardian regarding the historical points, exam findings, and any diagnostic results supporting the discharge/admit diagnosis, radiology results, the need for outpatient follow up. Response to treatment: the patient's symptoms have mildly improved after treatment. 11/19 10:37 Order name: Ankle Right 3 View XRAY; Complete Time: 11:26 rt 11/19 11:53 Order name: Crutches rt 11/19 11:53 Order name: Misc. Order: orthopedic boot rt Administered Medications: 10:46 Drug: morphine IM 4 mg IM once Route: IM; Site: right deltoid; iw 11:15 Follow up: Response: No adverse reaction; Pain is decreased iw 12:16 Drug: [facility] PO 10 mg-325 mg 1 tabs PO once Route: PO; iw 12:40 Follow up: Response: No adverse reaction; Pain is decreased iw Disposition Summary: 11/20/23 11:54 Discharge Ordered Notes: Location: Home rt Problem: new rt Symptoms: have improved rt Condition: Stable rt Diagnosis - Avulsion fracture of right distal fibula rt Followup: rt - With: Keith Jacobs MD - When: 7 - 10 days - Reason: Discharge Instructions: - Discharge Summary Sheet rt - Avulsion Fracture of the Foot rt Forms: - Medication Reconciliation Form rt - Thank You Letter rt - Antibiotic Education rt - Prescription Opioid Use rt - Patient Portal Instructions rt - Leadership Thank You Letter rt Prescriptions: - acetaminophen-codeine 300-30 mg Oral tablet - take 1 tablet ORAL route every 6 hours; 18 tablet; Refills: 0, Product rt Selection Permitted Signatures: Dispatcher [employer] Gita Sher RN RN iw Fidel Thompson RN RN ll1 Reggie Luna MD MD rt Corrections: (The following items were deleted from the chart) 10:38 10:37 PSHx: partial hyst.; ll1 ll1
--- NOTE | 2023-11-20 11:54 | ER ---
Nurse's Notes [facility] Name: Roxy Wolff Age: 43 yrs Sex: Female : 1980 Arrival Date: 11/20/2023 Time: 10:22 Bed 12 Private MD: None, None Diagnosis: Avulsion fracture of right distal fibula Presentation: 11/19 10:39 Chief complaint: Patient states: Tripped in a hole 20 min [employer]. R ankle/foot pain since. ll1 Coronavirus screen: Client denies travel out of the [place] in the last 14 days. At this time, the client does not indicate any symptoms associated with coronavirus-19. Ebola Screen: Patient denies travel to an Ebola-affected area in the 21 days before illness onset. Initial Sepsis Screen: Does the patient meet any 2 criteria? HR > 90 bpm. No. Patient's initial sepsis screen is negative. Does the patient have a suspected source of infection? No. Patient's initial sepsis screen is negative. Risk Assessment: Do you want to hurt yourself or someone else? Patient reports no desire to harm self or others. Onset of symptoms was November 20, 2023. 10:39 Method Of Arrival: Wheelchair ll1 10:39 Acuity: JOSR 3 ll1 10:40 Care prior to arrival: None. Mechanism of Injury: Fall. Trauma event details: Injury ll1 occurred in the [facility]. Triage Assessment: 10:38 General: Appears distressed, uncomfortable, Behavior is cooperative, appropriate for ll1 age. Pain: Complains of pain in right foot Pain currently is 10 out of 10 on a pain scale. Quality of pain is described as aching, throbbing. Musculoskeletal: Circulation, motion, and sensation intact. Capillary refill < 3 seconds, Reports pain in right foot. Injury Description: Bruise sustained to right foot. 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 - Social history:: Smoking status: Patient denies any tobacco usage or history of. - Family history:: not pertinent. Screenin:55 [facility] ED Fall Risk Assessment (Adult) History of falling in the last 3 months, iw including since admission Yes- single mechanical fall (1 pt) Confusion or Disorientation No (0 pts) Intoxicated or Sedated No (0 pts) Impaired Gait No (0 pts) Mobility Assist Device Used No (0 pt) Altered Elimination No (0 pt) Score/Fall Risk Level 0 - 2 = Low Risk. Abuse screen: Denies threats or abuse. Denies injuries from another. Nutritional screening: No deficits noted. Tuberculosis screening: No symptoms or risk factors identified. Assessment: 10:40 General: Appears uncomfortable. Pain: Complains of pain in right foot. Pain: Pain iw currently is 10 out of 10 on a pain scale. Is continuous, Noted to be crying, resistant to movement, restless. Neuro: Level of Consciousness is awake, alert, obeys commands, Oriented to person, place, time, situation, Moves all extremities. Cardiovascular: Patient's skin is warm and dry. Respiratory: Respiratory effort is even, unlabored, Respiratory pattern is regular, symmetrical. GI: No signs and/or symptoms were reported involving the gastrointestinal system. : No signs and/or symptoms were reported regarding the genitourinary system. Derm: Skin is intact. Musculoskeletal: Swelling present in right ankle and anterior aspect of right ankle Reports pain in right foot. Vital Signs: 10:39 BP 140 / 108; Pulse 108; Resp 18; Temp 97.2; Pulse Ox 98% on R/A; Weight 111.13 kg; ll1 Height 5 ft. 5 in. ; Pain 10/10; 11:57 BP 138 / 89; Pulse 89; Resp 16; Pulse Ox 98% on R/A; iw 10:39 Body Mass Index 40.77 (111.13 kg, 165.1 cm) [facility] 10:39 Pain Scale: Adult ll1 ED Course: 10:23 Patient arrived in ED. mr 10:23 None, None is Private Physician. mr 10:28 Reggie Luna MD is Attending Physician. rt 10:37 Arm band placed on Patient placed in an exam room, on a stretcher. ll1 10:40 Triage completed. ll1 10:40 ice and elevation to RLE. ll1 10:45 Gita Briceno, RN is Primary Nurse. iw 10:56 Patient has correct armband on for positive identification. Provided Education on: pain iw medication. Pillow given. Ice pack to injury. Verbal reassurance given. Elevated right foot. 11:11 Ankle Right 3 View XRAY In Process Unspecified. EDMS 11:53 Keith Jacobs MD is Referral Physician. rt 12:35 Patient did not have IV access during this emergency room visit. iw 12:35 Patient maintains SpO2 saturation greater than 95% on room air. Crutch training done. iw Ortho shoe applied to right foot. 12:35 No provider procedures requiring assistance completed. iw Administered Medications: 10:46 Drug: morphine IM 4 mg IM once Route: IM; Site: right deltoid; iw 11:15 Follow up: Response: No adverse reaction; Pain is decreased iw 12:16 Drug: [place] PO 10 mg-325 mg 1 tabs PO once Route: PO; iw 12:40 Follow up: Response: No adverse reaction; Pain is decreased iw Medication: 10:56 VIS not applicable for this client. iw Outcome: 11:54 Discharge ordered by MD. rt 12:38 Discharged to home with crutches, with family, iw 12:38 Condition: good 12:38 Discharge instructions given to patient, family, Instructed on discharge instructions, follow up and referral plans. Demonstrated understanding of instructions, follow-up care, medications, Prescriptions given X 1, 12:39 Patient left the ED. iw Signatures: Dispatcher [employer] EDMS [place], Reg Reg mr Gita Briceno, HEATHER RN iw Fidel Thompson RN RN ll1 Reggie Luna MD MD rt Corrections: (The following items were deleted from the chart) 10:38 10:37 PSHx: partial hyst.; ll1 ll1 10:41 10:39 Chief complaint: Patient states: Tripped in a hole 20 min [employer]. R foot pain since ll1 ll1 12:50 12:40 Patient did not have IV access during this emergency room visit. iw iw
[2023-11-20 12:51] VITALS: BP 138/89; TEMP 97.2; O2SAT 98
== END ==
LOC: ER 10:22
DX: S82.831A Other fracture of upper and lower end of right fibula, initial encounter for closed fracture (principal); W01.0XXA Fall on same level from slipping, tripping and stumbling without subsequent striking against object, initial encounter; Z88.1 Allergy status to other antibiotic agents